=== PATIENT | female | born 1990 | race Two or more races ===

== ENCOUNTER 2019-06-25 06:10 | Day surgery (SDC) | payer OTHER ==
[~2019-06-25] VITALS: Ht 157.5 cm; Wt 61.4 kg
[~2019-06-25 06:10] MED LIST: SODIUM CHLORIDE 0.9% 1,000 ML ONE
[2019-06-25] MEDS ORDERED: SODIUM CHLORIDE 0.9% 1,000 ML IV ONE (06:30)
[2019-06-25] MEDS ORDERED: FERR-89 PO (07:58)
[2019-06-25] MEDS ORDERED: SERT100T12 PO (07:58)
[2019-06-25] MEDS ORDERED: OMEP20 PO (07:58)
[2019-06-25] MEDS ORDERED: FAMO20 PO (07:58)
[2019-06-25] MEDS ORDERED: CETI10TA59 PO (07:58)
[2019-06-25] MEDS ORDERED: MELA5TAB3 PO (07:58)
[2019-06-25] MEDS ORDERED: DIVA-76 PO (07:58)
[2019-06-25] MEDS ORDERED: MYCO250C7 PO (07:58)
[2019-06-25] MEDS ORDERED: DIPH25 PO (07:58)
[2019-06-25] MEDS ORDERED: BECL10.62 IH (07:58)
[2019-06-25] MEDS ORDERED: MONT10TA21 PO (07:58)
[2019-06-25] MEDS ORDERED: DDAV2 PO (07:58)
[2019-06-25] MEDS ORDERED: ALBU8.5H8 IH (07:58)
[2019-06-25] MEDS ORDERED: PRED1 PO (07:58)
[2019-06-25] MEDS ORDERED: RISP1 PO (07:58)
[2019-06-25] MEDS ORDERED: FentaNYL CITRATE-PF 100 MCG/2 ML VIAL ONE (08:16)
[2019-06-25] MEDS ORDERED: MIDAZOLAM HCL 2 MG/2 ML VIAL ONE (08:16)
[2019-06-25] MEDS ORDERED: MethylPREDNISolone SOD SUCC 125 MG/2 ML VIAL IVP ONE (08:45)
[2019-06-25] MEDS ORDERED: MethylPREDNISolone SOD SUCC 125 MG/2 ML VIAL ONE (09:14)
[2019-06-25] MEDS ORDERED: LIDOCAINE 4% 50 ML SOLUTION ONE (15:24)
[2019-06-25] MEDS ORDERED: BENZOCAINE 20% 50 MCG/SPRAY 57 GM ONE (15:24)
[2019-06-25] MEDS ORDERED: LIDOCAINE 2% 30 ML JELLY ONE (15:24)
[2019-06-25] MEDS ORDERED: OXYGEN THERAPY IH SCH (20:00)
== END 2019-06-25 10:30 | disposition home or self-care (01) ==
LOC: SURGERY 06:10
PROVIDERS: ATTEND Internal Medicine Critical Care Medicine
DX: R05 Cough (principal); J47.9 Bronchiectasis, uncomplicated; J34.89 Other specified disorders of nose and nasal sinuses; J98.8 Other specified respiratory disorders; B37.0 Candidal stomatitis; J38.4 Edema of larynx; J45.909 Unspecified asthma, uncomplicated; Z87.01 Personal history of pneumonia (recurrent); Z98.890 Other specified postprocedural states; Z79.899 Other long term (current) drug therapy; R19.09 Other intra-abdominal and pelvic swelling, mass and lump
CPT/HCPCS: 31623; 31624; 71045; 84703; 87015; 87070; 87101; 87205; 87206; 87220; 88108; 88184; 88185; 88312; J2250; J2930; J3010; J7030

== ENCOUNTER 2021-03-11 17:55 | Emergency (ER) | payer OTHER ==
[~2021-03-11] VITALS: Ht 154.9 cm; Wt 62.0 kg
[~2021-03-11 17:55] MED LIST changes: +ALBU8.5H8 IH; +BECL10.62 IH; +CETI-450 PO; +DDAV2 PO; +DIPH25 PO; +DIVA-111 PO; +FAMO20 PO; +FERR-89 PO; +MELA5TAB40 PO; +MONT-35 PO; +MYCO250C27 PO; +OMEP20 PO; +PRED1 PO; +RISP1TAB48 PO; +SERT-162 PO; -SODIUM CHLORIDE 0.9% 1,000 ML ONE
[2021-03-11] MEDS ORDERED: ZOLP10TA8 PO (19:40)
[2021-03-11] MEDS ORDERED: MYCO250C27 PO (19:40)
[2021-03-11] MEDS ORDERED: BECL10.62 IH (19:40)
[2021-03-11] MEDS ORDERED: TRAZ-252 PO (19:40)
[2021-03-11] MEDS ORDERED: MIRT-89 PO (19:40)
[2021-03-11 20:02] VITALS: BP 128/51
[2021-03-11] MEDS ORDERED: RISP3TAB35 PO (20:28)
[2021-03-11] MEDS ORDERED: DIVA-112 PO (20:28)
[2021-03-11] MEDS ORDERED: DIVALPROEX SODIUM 500 MG ER TABLET PO ONE (20:30)
[2021-03-11] MEDS ORDERED: LORazepam 1 MG TABLET PO ONE (20:30)
[2021-03-11] MEDS ORDERED: RisperiDONE 1 MG TABLET PO ONE (20:30)
== END 2021-03-11 22:15 | disposition home or self-care (01) ==
LOC: EMS 18:00
DX: R45.6 Violent behavior (principal); R46.89 Other symptoms and signs involving appearance and behavior; Z79.899 Other long term (current) drug therapy
CPT/HCPCS: 99284; Z7502; Z7610

== ENCOUNTER 2022-04-22 09:03 | Inpatient (IN) | payer OTHER ==
[~2022-04-22] VITALS: Ht 170.2 cm; Wt 68.0 kg
[~2022-04-22 09:03] MED LIST changes: -DDAV2 PO; +DESM0.2T4 PO; -DIPH25 PO; -DIVA-111 PO; +DIVA-112 PO; -FAMO20 PO; -FERR-89 PO; -MELA5TAB40 PO; +MIRT-89 PO; -RISP1TAB48 PO; +RISP3TAB35 PO; +TRAZ-252 PO; +ZOLP10TA8 PO
[2022-04-22 11:52] LABS: BASOPHILS % (AUTO) 0.1 % (0.0-2.0); EOSINOPHILS % (AUTO) 0.1 % (1.0-6.0); HEMATOCRIT 33.3 % (36-46); HEMOGLOBIN 10.8 g/dL (12.0-16.0); LYMPHOCYTES # (AUTO) 0.4 K/uL (1.0-4.8); LYMPHOCYTES % (AUTO) 6.9 % (22.0-44.0); MEAN CORPUSCULAR HEMOGLOBIN 30.4 pg (26.0-34.0); MEAN CORPUSCULAR HGB CONC 32.4 G/dL (31.0-37.0); MEAN CORPUSCULAR VOLUME 94 fL (80-100); MONOCYTES # (AUTO) 0.6 K/uL (0.1-1.0); MONOCYTES % (AUTO) 9.6 % (2.0-9.0); NEUTROPHILS # (AUTO) 5.1 K/uL (1.8-7.7); NEUTROPHILS % (AUTO) 83.3 % (40.0-70.0); RED BLOOD CELL COUNT(AUTO) 3.55 MIL/uL (4.00-5.20); RED CELL DISTRIBUTION WIDTH 14.6 % (11.5-14.5)
[2022-04-22 12:03] LABS: ANION GAP 2 mmol/L (8-16); CALCIUM, TOTAL 9.6 mg/dL (8.8-10.5); CARBON DIOXIDE 29 mmol/L (22-29); CHLORIDE 98 mmol/L (98-107); CREATININE 0.67 mg/dL (0.60-1.30); GLUCOSE,RANDOM 93 mg/dL (70-110); POTASSIUM 3.8 mmol/L (3.5-5.1); SODIUM SERUM 129 mmol/L (136-145); UREA NITROGEN, BLOOD 10 mg/dL (7-18)
[2022-04-22 12:04] LABS: GLOMERULAR FILTR. RATE CALC > 60 mL/min (>60)
[2022-04-22 12:10] LABS: PLATELET COUNT (AUTO) 68 K/uL (150-450)
[2022-04-22 12:16] LABS: ALBUMIN 2.5 g/dL (3.4-5.0); ALKALINE PHOSPHATASE 83 U/L (46-116); ASPARTATE AMINOTRANSFERASE 9 U/L (15-37); BILIRUBIN,TOTAL 0.5 mg/dL (0.1-1.0); HCG,QUANTITATIVE < 1 mIU/mL (0-6); THYROID STIMULATING HORMONE 4.37 uIU/mL (0.36-3.74); TOTAL PROTEIN, SERUM 5.8 g/dL (6.4-8.2); VALPROIC ACID 109 mcg/mL (50-100)
[2022-04-22 12:26] LABS: COVID AG,FIA SOURCE NASOPHARYNGEAL
[2022-04-22 12:29] LABS: ALANINE AMINOTRANSFERASE 5 U/L (12-78)
[2022-04-22] MEDS ORDERED: SODIUM CHLORIDE 0.9% 1,000 ML IV ONE ×2 (13:15→16:45)
[2022-04-22 14:21] LABS: LITHIUM 2.79 mmol/L (0.60-1.20)
[2022-04-22 16:02] VITALS: BP 126/62
[2022-04-22] MEDS ORDERED: GUAN1TAB2 PO (16:39)
[2022-04-22] MEDS ORDERED: PRED2.5T PO (16:39)
[2022-04-22] MEDS ORDERED: OXYB5TAB20 PO (16:39)
[2022-04-22] MEDS ORDERED: LITH300C3 PO (16:39)
[2022-04-22] MEDS ORDERED: SERT-439 PO (16:42)
[2022-04-22] MEDS ORDERED: MYCO180T3 PO (16:42)
[2022-04-22] MEDS ORDERED: ONDANSETRON HCL 4 MG/2 ML VIAL IVP PRN (16:45)
[2022-04-22] MEDS ORDERED: LURA80TA2 PO (16:45)
[2022-04-22] MEDS ORDERED: VIBE75TA PO (16:45)
[2022-04-22] MEDS ORDERED: ALBU8HFA IH (16:45)
[2022-04-22] MEDS ORDERED: ZOLPIDEM TARTRATE 5 MG TABLET PO PRN (16:45)
[2022-04-22] MEDS ORDERED: BISACODYL 10 MG RECTAL RECTAL SUPPOSITORY PR PRN (16:45)
[2022-04-22 20:09] VITALS: BP 110/58
[2022-04-22] MEDS ORDERED: MYCOPHENOLATE SODIUM 180 MG DR TABLET PO SCH (21:00)
[2022-04-22] MEDS: ACETAMINOPHEN 325 MG TABLET PO PRN (21:35)
[2022-04-22] MEDS: DOCUSATE SODIUM 100 MG CAPSULE PO SCH (21:35)
[2022-04-22] MEDS: DESMOPRESSIN ACETATE 0.2 MG TABLET PO SCH (21:35)
[2022-04-23] VITALS (7 sets, daily range): BP systolic 108–133; BP diastolic 45–87
[2022-04-23] MEDS: MORPHINE SULFATE 2 MG/ML SYRINGE IVP PRN ×2 (02:10→22:25)
[2022-04-23] MEDS: ACETAMINOPHEN 325 MG TABLET PO PRN (05:00)
[2022-04-23 05:44] LABS: APPEARANCE,URINE HAZY (CLEAR); BILIRUBIN,URINE NEGATIVE (NEGATIVE); GLUCOSE, URINE (UA) NEGATIVE (NEGATIVE); LEUKOCYTE ESTERASE ,URINE MODERATE (NEGATIVE); NITRATE,URINE POSITIVE (NEGATIVE); OCCULT BLOOD,URINE MODERATE (NEGATIVE); PROTEIN,URINE 30-70 mg/dL (NEGATIVE)
[2022-04-23 05:50] LABS: AMPHET/METH SCREEN,URINE NEGATIVE (NEGATIVE); BARBITURATE SCREEN, URINE NEGATIVE (NEGATIVE); BENZODIAZEPINES SCREEN,URINE NEGATIVE (NEGATIVE); CANNABINOID SCREEN,URINE NEGATIVE (NEGATIVE); COCAINE SCREEN,URINE NEGATIVE (NEGATIVE); METHADONE SCREEN, URINE NEGATIVE (NEGATIVE); OPIATE SCREEN,URINE NEGATIVE (NEGATIVE)
[2022-04-23 05:53] LABS: PHENCYCLIDINE SCREEN,URINE NEGATIVE (NEGATIVE)
[2022-04-23 06:06] LABS: BACTERIA,URINE Many /HPF (None Seen); SQUAMOUS EPITHELIAL CELL,UR Few /LPF (None Seen)
[2022-04-23 06:22] LABS: ANION GAP 10 mmol/L (8-16); CARBON DIOXIDE 24 mmol/L (22-29); CHLORIDE 100 mmol/L (98-107); CREATININE 0.72 mg/dL (0.60-1.30); GLUCOSE,RANDOM 113 mg/dL (70-110); POTASSIUM 4.8 mmol/L (3.5-5.1); SODIUM SERUM 134 mmol/L (136-145); UREA NITROGEN, BLOOD 7 mg/dL (7-18)
[2022-04-23 06:24] LABS: GLOMERULAR FILTR. RATE CALC > 60 mL/min (>60)
[2022-04-23 07:00] LABS: LITHIUM 1.86 mmol/L (0.60-1.20)
[2022-04-23 08:24] LABS: VALPROIC ACID 74 mcg/mL (50-100)
[2022-04-23] MEDS: HEPARIN SODIUM,PORCINE 5,000 UNITS/ML VIAL SQ SCH ×3 (08:56→16:50)
[2022-04-23] MEDS: PANTOPRAZOLE SODIUM 40 MG DR TABLET PO SCH (09:00)
[2022-04-23] MEDS: MONTELUKAST SODIUM 10 MG TABLET PO SCH (09:00)
[2022-04-23] MEDS: DOCUSATE SODIUM 100 MG CAPSULE PO SCH ×2 (09:00→21:00)
[2022-04-23 09:32] LABS: BASOPHILS % (AUTO) 0.1 % (0.0-2.0); EOSINOPHILS % (AUTO) 0.6 % (1.0-6.0); HEMATOCRIT 34.7 % (36-46); HEMOGLOBIN 11.3 g/dL (12.0-16.0); LYMPHOCYTES # (AUTO) 0.3 K/uL (1.0-4.8); LYMPHOCYTES % (AUTO) 5.9 % (22.0-44.0); MEAN CORPUSCULAR HEMOGLOBIN 30.7 pg (26.0-34.0); MEAN CORPUSCULAR HGB CONC 32.6 G/dL (31.0-37.0); MEAN CORPUSCULAR VOLUME 94 fL (80-100); MONOCYTES # (AUTO) 0.9 K/uL (0.1-1.0); MONOCYTES % (AUTO) 16.4 % (2.0-9.0); PLATELET COUNT (AUTO) 65 K/uL (150-450); RED BLOOD CELL COUNT(AUTO) 3.68 MIL/uL (4.00-5.20); RED CELL DISTRIBUTION WIDTH 14.9 % (11.5-14.5)
[2022-04-23] MEDS: ACETAMINOPHEN 650 MG RECTAL SUPPOSITORY PR PRN ×2 (15:06→23:34)
[2022-04-23] MEDS: CefTRIAXone 1 GM/DEXTROSE 50 ML IV SCH (16:49)
[2022-04-23] MEDS: DEXTROSE 5%-0.45% SODIUM CHL 1,000 ML IV SCH (16:50)
[2022-04-23] MEDS: DESMOPRESSIN ACETATE 0.2 MG TABLET PO SCH (21:00)
[2022-04-24 04:00] VITALS: BP 122/53
[2022-04-24] MEDS: DEXTROSE 5%-0.45% SODIUM CHL 1,000 ML IV SCH (05:29)
[2022-04-24 06:09] LABS: BASOPHILS % (AUTO) 0.2 % (0.0-2.0); EOSINOPHILS % (AUTO) 0 % (1.0-6.0); HEMATOCRIT 34.7 % (36-46); HEMOGLOBIN 11.2 g/dL (12.0-16.0); LYMPHOCYTES # (AUTO) 0.5 K/uL (1.0-4.8); LYMPHOCYTES % (AUTO) 6.8 % (22.0-44.0); MEAN CORPUSCULAR HEMOGLOBIN 30.6 pg (26.0-34.0); MEAN CORPUSCULAR HGB CONC 32.4 G/dL (31.0-37.0); MEAN CORPUSCULAR VOLUME 94 fL (80-100); MONOCYTES # (AUTO) 1.7 K/uL (0.1-1.0); MONOCYTES % (AUTO) 21.7 % (2.0-9.0); NEUTROPHILS # (AUTO) 5.6 K/uL (1.8-7.7); NEUTROPHILS % (AUTO) 71.3 % (40.0-70.0); PLATELET COUNT (AUTO) 82 K/uL (150-450); RED BLOOD CELL COUNT(AUTO) 3.67 MIL/uL (4.00-5.20); RED CELL DISTRIBUTION WIDTH 14.4 % (11.5-14.5)
[2022-04-24 07:01] LABS: ANION GAP 8 mmol/L (8-16); CALCIUM, TOTAL 9.8 mg/dL (8.8-10.5); CARBON DIOXIDE 26 mmol/L (22-29); CHLORIDE 104 mmol/L (98-107); GLUCOSE,RANDOM 128 mg/dL (70-110); POTASSIUM 4.1 mmol/L (3.5-5.1); SODIUM SERUM 138 mmol/L (136-145); UREA NITROGEN, BLOOD 7 mg/dL (7-18)
[2022-04-24 07:03] VITALS: BP 141/74
[2022-04-24 07:03] LABS: GLOMERULAR FILTR. RATE CALC > 60 mL/min (>60)
[2022-04-24] MEDS: HEPARIN SODIUM,PORCINE 5,000 UNITS/ML VIAL SQ SCH ×2 (08:00)
[2022-04-24] MEDS: DOCUSATE SODIUM 100 MG CAPSULE PO SCH ×2 (09:30→20:09)
[2022-04-24] MEDS: PANTOPRAZOLE SODIUM 40 MG DR TABLET PO SCH (09:30)
[2022-04-24] MEDS: MONTELUKAST SODIUM 10 MG TABLET PO SCH (09:30)
[2022-04-24 11:00] VITALS: BP 122/74
[2022-04-24 15:21] VITALS: BP 115/92
[2022-04-24] MEDS ORDERED: SODIUM CHLORIDE 0.9% 250 ML IV ONE (16:39)
[2022-04-24] MEDS: CefTRIAXone 1 GM/DEXTROSE 50 ML IV SCH (16:43)
[2022-04-24] MEDS: MORPHINE SULFATE 2 MG/ML SYRINGE IVP PRN (18:53)
[2022-04-24 20:00] VITALS: BP 133/74
[2022-04-24] MEDS: HYDROCODONE/ACETAMINOPHEN 5-325 MG TABLET PO PRN (20:09)
[2022-04-24] MEDS: DESMOPRESSIN ACETATE 0.2 MG TABLET PO SCH (20:09)
[2022-04-24] MEDS: ACETAMINOPHEN 650 MG RECTAL SUPPOSITORY PR PRN (20:10)
[2022-04-24] MEDS ORDERED: VANCOMYCIN HCL 1 GM in DEXTROSE 5%-WATER 250 ML IV ONE (21:00)
[2022-04-25] MEDS ORDERED: TraZODone HCL 50 MG TABLET PO ONE (00:15)
[2022-04-25 00:18] VITALS: BP 128/69
[2022-04-25] MEDS ORDERED: ADENOSINE 3 MG/ML 2 ML VIAL IVP ONE (01:00)
[2022-04-25] MEDS ORDERED: DILTIAZEM HCL 5 MG/ML 5 ML VIAL IVP ONE (01:25)
[2022-04-25] MEDS ORDERED: SODIUM CHLORIDE 0.9% 250 ML IV ONE ×2 (01:36→22:35)
[2022-04-25 05:20] VITALS: BP 99/57
[2022-04-25 07:19] VITALS: BP 130/60
[2022-04-25] MEDS ORDERED: AMIODARONE HCL 150 MG in DEXTROSE 5%-WATER 97 ML IV ONE (08:00)
[2022-04-25] MEDS: DEXTROSE 5%-0.45% SODIUM CHL 1,000 ML IV SCH ×2 (08:00→18:09)
[2022-04-25] MEDS ORDERED: AMIODARONE HCL 360 MG in DEXTROSE 5%-WATER 242.8 ML IV ONE (08:00)
[2022-04-25] MEDS ORDERED: LEVOTHYROXINE SODIUM 100 MCG VIAL IVP SCH (09:00)
[2022-04-25] MEDS: MONTELUKAST SODIUM 10 MG TABLET PO SCH (09:00)
[2022-04-25] MEDS: DOCUSATE SODIUM 100 MG CAPSULE PO SCH ×2 (09:00→20:45)
[2022-04-25] MEDS: PANTOPRAZOLE SODIUM 40 MG/VIAL IVP SCH (09:13)
[2022-04-25] MEDS ORDERED: DIGOXIN 250 MCG/ML 2 ML AMP IVP SCH (12:00)
[2022-04-25 12:42] VITALS: BP 111/63
[2022-04-25] MEDS: DIGOXIN 250 MCG/ML 2 ML AMP IVP SCH ×3 (12:44→23:12)
[2022-04-25] MEDS ORDERED: AMIODARONE HCL 540 MG in DEXTROSE 5%-WATER 239.2 ML IV ONE (14:00)
[2022-04-25 15:29] VITALS: BP 134/61
[2022-04-25 16:32] LABS: BASOPHILS % (AUTO) 0.2 % (0.0-2.0); EOSINOPHILS % (AUTO) 0.3 % (1.0-6.0); HEMATOCRIT 36.3 % (36-46); HEMOGLOBIN 11.8 g/dL (12.0-16.0); LYMPHOCYTES # (AUTO) 1.4 K/uL (1.0-4.8); LYMPHOCYTES % (AUTO) 10.7 % (22.0-44.0); MEAN CORPUSCULAR HGB CONC 32.4 G/dL (31.0-37.0); MEAN CORPUSCULAR VOLUME 93 fL (80-100); MONOCYTES # (AUTO) 1.3 K/uL (0.1-1.0); MONOCYTES % (AUTO) 10.2 % (2.0-9.0); NEUTROPHILS # (AUTO) 10.3 K/uL (1.8-7.7); NEUTROPHILS % (AUTO) 78.6 % (40.0-70.0); PLATELET COUNT (AUTO) 82 K/uL (150-450); RED BLOOD CELL COUNT(AUTO) 3.91 MIL/uL (4.00-5.20); RED CELL DISTRIBUTION WIDTH 14.6 % (11.5-14.5)
[2022-04-25 16:42] LABS: ANION GAP 5 mmol/L (8-16); CALCIUM, TOTAL 9.1 mg/dL (8.8-10.5); CARBON DIOXIDE 25 mmol/L (22-29); CHLORIDE 95 mmol/L (98-107); CREATININE 0.46 mg/dL (0.60-1.30); GLUCOSE,RANDOM 104 mg/dL (70-110); POTASSIUM 3.2 mmol/L (3.5-5.1); SODIUM SERUM 125 mmol/L (136-145); UREA NITROGEN, BLOOD 8 mg/dL (7-18)
[2022-04-25 16:43] LABS: GLOMERULAR FILTR. RATE CALC > 60 mL/min (>60)
[2022-04-25] MEDS: CefTRIAXone 1 GM/DEXTROSE 50 ML IV SCH (16:59)
[2022-04-25 20:04] VITALS: BP 125/87
[2022-04-25] MEDS: DESMOPRESSIN ACETATE 0.2 MG TABLET PO SCH (20:46)
[2022-04-25 21:14] LABS: ANION GAP 8 mmol/L (8-16); CALCIUM, TOTAL 9.2 mg/dL (8.8-10.5); CARBON DIOXIDE 25 mmol/L (22-29); CHLORIDE 99 mmol/L (98-107); CREATININE 0.44 mg/dL (0.60-1.30); GLUCOSE,RANDOM 100 mg/dL (70-110); POTASSIUM 3.4 mmol/L (3.5-5.1); SODIUM SERUM 132 mmol/L (136-145); UREA NITROGEN, BLOOD 7 mg/dL (7-18)
[2022-04-25 21:16] LABS: GLOMERULAR FILTR. RATE CALC > 60 mL/min (>60)
[2022-04-25] MEDS ORDERED: POTASSIUM CHLORIDE 20 MEQ ER TABLET PO ONE (21:45)
[2022-04-25] MEDS ORDERED: VANCOMYCIN HCL 1.5 GM in DEXTROSE 5%-WATER 250 ML IV ONE (22:00)
[2022-04-25] MEDS: PIPERACILLIN/TAZO 3.375 GM/D5W 50 ML IV SCH (22:47)
[2022-04-26 00:06] VITALS: BP 112/70
[2022-04-26] MEDS: PIPERACILLIN/TAZO 3.375 GM/D5W 50 ML IV SCH ×4 (03:42→21:42)
[2022-04-26 04:14] VITALS: BP 114/93
[2022-04-26] MEDS: LEVOTHYROXINE SODIUM 25 MCG TABLET PO SCH (05:45)
[2022-04-26] MEDS: DIGOXIN 250 MCG/ML 2 ML AMP IVP SCH (05:59)
[2022-04-26] MEDS: DEXTROSE 5%-0.45% SODIUM CHL 1,000 ML IV SCH (06:31)
[2022-04-26 07:22] VITALS: BP 121/74
[2022-04-26] MEDS: MONTELUKAST SODIUM 10 MG TABLET PO SCH (08:33)
[2022-04-26] MEDS: DOCUSATE SODIUM 100 MG CAPSULE PO SCH ×2 (08:33→20:36)
[2022-04-26] MEDS: PANTOPRAZOLE SODIUM 40 MG/VIAL IVP SCH (08:33)
[2022-04-26] MEDS: AMIODARONE HCL 750 MG in DEXTROSE 5%-WATER 485 ML IV SCH (08:56)
[2022-04-26] MEDS: VANCOMYCIN HCL 1 GM in DEXTROSE 5%-WATER 250 ML IV SCH ×2 (08:57→15:23)
[2022-04-26 11:11] VITALS: BP 112/67
[2022-04-26 12:34] LABS: PHOSPHORUS 3.7 mg/dL (2.5-4.9)
[2022-04-26 16:20] VITALS: BP 119/58
[2022-04-26 18:37] LABS: ANION GAP 13 mmol/L (8-16); CALCIUM, TOTAL 9.5 mg/dL (8.8-10.5); CARBON DIOXIDE 22 mmol/L (22-29); CHLORIDE 98 mmol/L (98-107); CREATININE 0.83 mg/dL (0.60-1.30); GLOMERULAR FILTR. RATE CALC > 60 mL/min (>60); GLUCOSE,RANDOM 114 mg/dL (70-110); POTASSIUM 4.4 mmol/L (3.5-5.1); SODIUM SERUM 133 mmol/L (136-145); UREA NITROGEN, BLOOD 10 mg/dL (7-18)
[2022-04-26 19:29] VITALS: BP 127/64
[2022-04-26] MEDS: DESMOPRESSIN ACETATE 0.2 MG TABLET PO SCH (20:37)
[2022-04-26] MEDS ORDERED: MAGNESIUM SULFATE 2 GM/WATER 50 ML IV PRN (22:00)
[2022-04-26] MEDS ORDERED: MAGNESIUM SULFATE 4 GM/WATER 100 ML IV PRN (22:00)
[2022-04-26] MEDS ORDERED: MAGNESIUM OXIDE 400 MG TABLET PO PRN (22:00)
[2022-04-26 22:29] LABS: ALBUMIN 2.3 g/dL (3.4-5.0)
[2022-04-27 00:04] VITALS: BP 130/68
[2022-04-27] MEDS: DEXTROSE 5%-0.45% SODIUM CHL 1,000 ML IV SCH ×2 (01:14→15:36)
[2022-04-27 04:11] VITALS: BP 100/59
[2022-04-27] MEDS: PIPERACILLIN/TAZO 3.375 GM/D5W 50 ML IV SCH ×4 (04:15→21:07)
[2022-04-27] MEDS: LEVOTHYROXINE SODIUM 25 MCG TABLET PO SCH (06:23)
[2022-04-27 07:44] VITALS: BP 124/73
[2022-04-27] MEDS: DOCUSATE SODIUM 100 MG CAPSULE PO SCH ×2 (09:15→20:31)
[2022-04-27] MEDS: PANTOPRAZOLE SODIUM 40 MG/VIAL IVP SCH (09:16)
[2022-04-27] MEDS: MONTELUKAST SODIUM 10 MG TABLET PO SCH (09:16)
[2022-04-27] MEDS: AMIODARONE HCL 750 MG in DEXTROSE 5%-WATER 485 ML IV SCH (09:20)
[2022-04-27] MEDS: METOPROLOL SUCCINATE 25 MG ER TABLET PO SCH (10:11)
[2022-04-27] MEDS: HYDROCODONE/ACETAMINOPHEN 5-325 MG TABLET PO PRN (10:11)
[2022-04-27 11:22] VITALS: BP 132/75
[2022-04-27 11:44] LABS: EOSINOPHILS % (AUTO) 0.6 % (1.0-6.0); HEMATOCRIT 29.2 % (36-46); HEMOGLOBIN 9.5 g/dL (12.0-16.0); LYMPHOCYTES % (AUTO) 9.1 % (22.0-44.0); MEAN CORPUSCULAR HEMOGLOBIN 30.3 pg (26.0-34.0); MEAN CORPUSCULAR HGB CONC 32.6 G/dL (31.0-37.0); MEAN CORPUSCULAR VOLUME 93 fL (80-100); MONOCYTES % (AUTO) 8.8 % (2.0-9.0); NEUTROPHILS % (AUTO) 81.4 % (40.0-70.0); PLATELET COUNT (AUTO) 147 K/uL (150-450); RED BLOOD CELL COUNT(AUTO) 3.15 MIL/uL (4.00-5.20)
[2022-04-27 11:45] LABS: BASOPHILS % (AUTO) 0.1 % (0.0-2.0); NEUTROPHILS # (AUTO) 9.3 K/uL (1.8-7.7)
[2022-04-27 12:01] LABS: ANION GAP 4 mmol/L (8-16); C-REACTIVE PROTEIN QUANT 9.41 mg/dL (0.00-0.30); CALCIUM, TOTAL 8.9 mg/dL (8.8-10.5); CARBON DIOXIDE 27 mmol/L (22-29); CHLORIDE 100 mmol/L (98-107); CREATININE 0.91 mg/dL (0.60-1.30); GLUCOSE,RANDOM 109 mg/dL (70-110); POTASSIUM 3.7 mmol/L (3.5-5.1); SODIUM SERUM 131 mmol/L (136-145); UREA NITROGEN, BLOOD 8 mg/dL (7-18)
[2022-04-27 12:03] LABS: GLOMERULAR FILTR. RATE CALC > 60 mL/min (>60)
[2022-04-27 12:26] LABS: ALANINE AMINOTRANSFERASE 4 U/L (12-78); ALKALINE PHOSPHATASE 78 U/L (46-116); ASPARTATE AMINOTRANSFERASE 20 U/L (15-37); BILIRUBIN,TOTAL 0.6 mg/dL (0.1-1.0); TOTAL PROTEIN, SERUM 5.4 g/dL (6.4-8.2)
[2022-04-27 15:29] VITALS: BP 128/72
[2022-04-27 19:33] VITALS: BP 120/76
[2022-04-27] MEDS: DESMOPRESSIN ACETATE 0.2 MG TABLET PO SCH (20:31)
[2022-04-28] VITALS (8 sets, daily range): BP systolic 86–122; BP diastolic 49–74
[2022-04-28] MEDS: DEXTROSE 5%-0.45% SODIUM CHL 1,000 ML IV SCH (03:50)
[2022-04-28] MEDS: PIPERACILLIN/TAZO 3.375 GM/D5W 50 ML IV SCH ×4 (03:50→20:58)
[2022-04-28] MEDS: LEVOTHYROXINE SODIUM 25 MCG TABLET PO SCH (06:37)
[2022-04-28] MEDS: PANTOPRAZOLE SODIUM 40 MG/VIAL IVP SCH (09:35)
[2022-04-28] MEDS: MONTELUKAST SODIUM 10 MG TABLET PO SCH (09:36)
[2022-04-28] MEDS: DOCUSATE SODIUM 100 MG CAPSULE PO SCH ×2 (09:36→20:43)
[2022-04-28] MEDS: METOPROLOL SUCCINATE 25 MG ER TABLET PO SCH ×2 (11:48→11:51)
[2022-04-28 15:25] LABS: BASOPHILS % (AUTO) 0.2 % (0.0-2.0); EOSINOPHILS % (AUTO) 0.7 % (1.0-6.0); HEMATOCRIT 28.5 % (36-46); HEMOGLOBIN 9.5 g/dL (12.0-16.0); LYMPHOCYTES # (AUTO) 1.7 K/uL (1.0-4.8); LYMPHOCYTES % (AUTO) 13.1 % (22.0-44.0); MEAN CORPUSCULAR HEMOGLOBIN 30.4 pg (26.0-34.0); MEAN CORPUSCULAR HGB CONC 33.2 G/dL (31.0-37.0); MEAN CORPUSCULAR VOLUME 92 fL (80-100); MONOCYTES # (AUTO) 1.1 K/uL (0.1-1.0); NEUTROPHILS # (AUTO) 10.3 K/uL (1.8-7.7); PLATELET COUNT (AUTO) 223 K/uL (150-450); RED BLOOD CELL COUNT(AUTO) 3.11 MIL/uL (4.00-5.20); RED CELL DISTRIBUTION WIDTH 14.4 % (11.5-14.5)
[2022-04-28 15:34] LABS: ANION GAP 7 mmol/L (8-16); CALCIUM, TOTAL 9.1 mg/dL (8.8-10.5); CARBON DIOXIDE 25 mmol/L (22-29); CHLORIDE 103 mmol/L (98-107); CREATININE 0.83 mg/dL (0.60-1.30); GLOMERULAR FILTR. RATE CALC > 60 mL/min (>60); GLUCOSE,RANDOM 102 mg/dL (70-110); SODIUM SERUM 135 mmol/L (136-145); UREA NITROGEN, BLOOD 7 mg/dL (7-18)
[2022-04-28 15:39] LABS: ALANINE AMINOTRANSFERASE 11 U/L (12-78); ALBUMIN 2.1 g/dL (3.4-5.0); ALKALINE PHOSPHATASE 77 U/L (46-116); ASPARTATE AMINOTRANSFERASE 19 U/L (15-37); BILIRUBIN,TOTAL 0.4 mg/dL (0.1-1.0); TOTAL PROTEIN, SERUM 5.6 g/dL (6.4-8.2)
[2022-04-28] MEDS: DESMOPRESSIN ACETATE 0.2 MG TABLET PO SCH (20:43)
[2022-04-29] MEDS: PIPERACILLIN/TAZO 3.375 GM/D5W 50 ML IV SCH ×4 (03:11→22:00)
[2022-04-29] MEDS: DEXTROSE 5%-0.45% SODIUM CHL 1,000 ML IV SCH ×2 (03:12→17:20)
[2022-04-29 04:12] VITALS: BP 133/51
[2022-04-29] MEDS: LEVOTHYROXINE SODIUM 25 MCG TABLET PO SCH (05:50)
[2022-04-29 07:12] VITALS: BP 135/69
[2022-04-29] MEDS: PANTOPRAZOLE SODIUM 40 MG/VIAL IVP SCH (09:00)
[2022-04-29] MEDS: DOCUSATE SODIUM 100 MG CAPSULE PO SCH ×2 (09:03→20:38)
[2022-04-29] MEDS: MONTELUKAST SODIUM 10 MG TABLET PO SCH (09:03)
[2022-04-29 11:05] VITALS: BP 132/72
[2022-04-29 15:16] VITALS: BP 105/70
[2022-04-29 19:50] VITALS: BP 122/55
[2022-04-29] MEDS: DESMOPRESSIN ACETATE 0.2 MG TABLET PO SCH (20:38)
[2022-04-29] MEDS: DIVALPROEX SODIUM 500 MG DR TABLET PO SCH (20:38)
[2022-04-29] MEDS: QUEtiapine FUMARATE 100 MG TABLET PO SCH (20:38)
[2022-04-29] MEDS ORDERED: LEVOFLOXACIN 750 MG TABLET PO ONE (23:55)
[2022-04-30] MEDS: MetroNIDAZOLE 500 MG TABLET PO SCH ×3 (00:36→16:27)
[2022-04-30 00:50] VITALS: BP 146/85
[2022-04-30] MEDS: PIPERACILLIN/TAZO 3.375 GM/D5W 50 ML IV SCH ×2 (04:00→10:56)
[2022-04-30 04:24] VITALS: BP 138/72
[2022-04-30] MEDS: LEVOTHYROXINE SODIUM 25 MCG TABLET PO SCH (06:06)
[2022-04-30] MEDS: DEXTROSE 5%-0.45% SODIUM CHL 1,000 ML IV SCH ×2 (06:08→20:44)
[2022-04-30 07:08] VITALS: BP 113/85
[2022-04-30] MEDS: DIVALPROEX SODIUM 500 MG DR TABLET PO SCH ×2 (07:52→20:43)
[2022-04-30] MEDS: QUEtiapine FUMARATE 100 MG TABLET PO SCH ×3 (07:52→20:42)
[2022-04-30] MEDS: MONTELUKAST SODIUM 10 MG TABLET PO SCH (07:52)
[2022-04-30] MEDS: DOCUSATE SODIUM 100 MG CAPSULE PO SCH ×2 (07:52→20:42)
[2022-04-30] MEDS: PANTOPRAZOLE SODIUM 40 MG/VIAL IVP SCH (10:55)
[2022-04-30 10:56] VITALS: BP 97/52
[2022-04-30 11:54] LABS: BASOPHILS % (AUTO) 0.4 % (0.0-2.0); EOSINOPHILS % (AUTO) 1.3 % (1.0-6.0); HEMATOCRIT 29.8 % (36-46); HEMOGLOBIN 9.9 g/dL (12.0-16.0); LYMPHOCYTES # (AUTO) 1.6 K/uL (1.0-4.8); LYMPHOCYTES % (AUTO) 15.6 % (22.0-44.0); MEAN CORPUSCULAR HEMOGLOBIN 30.1 pg (26.0-34.0); MEAN CORPUSCULAR HGB CONC 33.3 G/dL (31.0-37.0); MEAN CORPUSCULAR VOLUME 90 fL (80-100); MONOCYTES # (AUTO) 0.8 K/uL (0.1-1.0); MONOCYTES % (AUTO) 8.1 % (2.0-9.0); NEUTROPHILS # (AUTO) 7.8 K/uL (1.8-7.7); NEUTROPHILS % (AUTO) 74.6 % (40.0-70.0); PLATELET COUNT (AUTO) 328 K/uL (150-450); RED CELL DISTRIBUTION WIDTH 14.5 % (11.5-14.5)
[2022-04-30 12:02] LABS: ANION GAP 7 mmol/L (8-16); C-REACTIVE PROTEIN QUANT 6.34 mg/dL (0.00-0.30); CALCIUM, TOTAL 9.7 mg/dL (8.8-10.5); CARBON DIOXIDE 28 mmol/L (22-29); CHLORIDE 101 mmol/L (98-107); CREATININE 0.87 mg/dL (0.60-1.30); GLUCOSE,RANDOM 95 mg/dL (70-110); POTASSIUM 4.4 mmol/L (3.5-5.1); SODIUM SERUM 136 mmol/L (136-145); UREA NITROGEN, BLOOD 13 mg/dL (7-18)
[2022-04-30 12:03] LABS: GLOMERULAR FILTR. RATE CALC > 60 mL/min (>60)
[2022-04-30 15:03] VITALS: BP 140/83
[2022-04-30] MEDS: CefTRIAXone 1 GM/DEXTROSE 50 ML IV SCH (16:27)
[2022-04-30 20:00] VITALS: BP 122/79
[2022-04-30] MEDS: DESMOPRESSIN ACETATE 0.2 MG TABLET PO SCH (20:43)
[2022-05-01] VITALS (7 sets, daily range): BP systolic 119–147; BP diastolic 62–94
[2022-05-01] MEDS: MetroNIDAZOLE 500 MG TABLET PO SCH ×3 (00:27→16:11)
[2022-05-01] MEDS: LEVOTHYROXINE SODIUM 25 MCG TABLET PO SCH (05:50)
[2022-05-01] MEDS: QUEtiapine FUMARATE 100 MG TABLET PO SCH ×3 (08:54→20:38)
[2022-05-01] MEDS: DIVALPROEX SODIUM 500 MG DR TABLET PO SCH ×2 (08:54→20:38)
[2022-05-01] MEDS: DOCUSATE SODIUM 100 MG CAPSULE PO SCH ×2 (08:54→20:38)
[2022-05-01] MEDS: MONTELUKAST SODIUM 10 MG TABLET PO SCH (08:54)
[2022-05-01] MEDS: DEXTROSE 5%-0.45% SODIUM CHL 1,000 ML IV SCH ×2 (11:53→22:40)
[2022-05-01] MEDS: PANTOPRAZOLE SODIUM 40 MG/VIAL IVP SCH (11:54)
[2022-05-01] MEDS: CefTRIAXone 1 GM/DEXTROSE 50 ML IV SCH (16:11)
[2022-05-01] MEDS: DESMOPRESSIN ACETATE 0.2 MG TABLET PO SCH (20:38)
[2022-05-02] MEDS: MetroNIDAZOLE 500 MG TABLET PO SCH ×3 (00:24→15:01)
[2022-05-02 04:55] VITALS: BP 120/60
[2022-05-02] MEDS: LEVOTHYROXINE SODIUM 25 MCG TABLET PO SCH (06:03)
[2022-05-02 08:01] VITALS: BP 110/55
[2022-05-02] MEDS: QUEtiapine FUMARATE 100 MG TABLET PO SCH ×3 (08:20→20:30)
[2022-05-02] MEDS: DIVALPROEX SODIUM 500 MG DR TABLET PO SCH ×2 (08:20→20:29)
[2022-05-02] MEDS: MONTELUKAST SODIUM 10 MG TABLET PO SCH (08:20)
[2022-05-02] MEDS: DOCUSATE SODIUM 100 MG CAPSULE PO SCH ×2 (08:20→20:29)
[2022-05-02] MEDS: PANTOPRAZOLE SODIUM 40 MG/VIAL IVP SCH (09:00)
[2022-05-02 11:38] VITALS: BP 133/63
[2022-05-02] MEDS: DEXTROSE 5%-0.45% SODIUM CHL 1,000 ML IV SCH (12:00)
[2022-05-02] MEDS ORDERED: LEVOFLOXACIN 750 MG TABLET PO ONE (13:00)
[2022-05-02 15:39] VITALS: BP 125/69
[2022-05-02] MEDS: DESMOPRESSIN ACETATE 0.2 MG TABLET PO SCH (20:29)
[2022-05-02 20:30] VITALS: BP 141/71
[2022-05-03 00:36] VITALS: BP 119/58
[2022-05-03] MEDS: MetroNIDAZOLE 500 MG TABLET PO SCH ×3 (01:07→16:32)
[2022-05-03] MEDS: DEXTROSE 5%-0.45% SODIUM CHL 1,000 ML IV SCH ×2 (01:09→14:40)
[2022-05-03] MEDS ORDERED: MELATONIN 5 MG TABLET PO ONE (01:30)
[2022-05-03 05:10] VITALS: BP 134/81
[2022-05-03] MEDS: LEVOTHYROXINE SODIUM 25 MCG TABLET PO SCH (06:49)
[2022-05-03 07:50] VITALS: BP 96/55
[2022-05-03] MEDS: QUEtiapine FUMARATE 100 MG TABLET PO SCH ×3 (08:25→22:06)
[2022-05-03] MEDS: DIVALPROEX SODIUM 500 MG DR TABLET PO SCH ×2 (08:27→22:05)
[2022-05-03] MEDS: MONTELUKAST SODIUM 10 MG TABLET PO SCH (08:31)
[2022-05-03] MEDS: DOCUSATE SODIUM 100 MG CAPSULE PO SCH ×2 (08:32→22:05)
[2022-05-03] MEDS: PANTOPRAZOLE SODIUM 40 MG/VIAL IVP SCH (09:00)
[2022-05-03] MEDS ORDERED: LEVOFLOXACIN 750 MG TABLET PO ONE (09:00)
[2022-05-03 11:31] LABS: BASOPHILS % (AUTO) 0.3 % (0.0-2.0); EOSINOPHILS % (AUTO) 1.2 % (1.0-6.0); HEMATOCRIT 33.6 % (36-46); HEMOGLOBIN 10.8 g/dL (12.0-16.0); LYMPHOCYTES # (AUTO) 1.9 K/uL (1.0-4.8); LYMPHOCYTES % (AUTO) 24.9 % (22.0-44.0); MEAN CORPUSCULAR HEMOGLOBIN 30.1 pg (26.0-34.0); MEAN CORPUSCULAR HGB CONC 32.2 G/dL (31.0-37.0); MEAN CORPUSCULAR VOLUME 93 fL (80-100); MONOCYTES # (AUTO) 0.5 K/uL (0.1-1.0); MONOCYTES % (AUTO) 6.2 % (2.0-9.0); NEUTROPHILS # (AUTO) 5.1 K/uL (1.8-7.7); NEUTROPHILS % (AUTO) 67.4 % (40.0-70.0); PLATELET COUNT (AUTO) 315 K/uL (150-450); RED BLOOD CELL COUNT(AUTO) 3.61 MIL/uL (4.00-5.20); RED CELL DISTRIBUTION WIDTH 14.9 % (11.5-14.5)
[2022-05-03 11:45] VITALS: BP 105/65
[2022-05-03 11:53] LABS: ALBUMIN 2.5 g/dL (3.4-5.0); ALKALINE PHOSPHATASE 81 U/L (46-116); ANION GAP 7 mmol/L (8-16); ASPARTATE AMINOTRANSFERASE 10 U/L (15-37); BILIRUBIN,TOTAL 0.4 mg/dL (0.1-1.0); C-REACTIVE PROTEIN QUANT 2.28 mg/dL (0.00-0.30); CALCIUM, TOTAL 9.8 mg/dL (8.8-10.5); CARBON DIOXIDE 27 mmol/L (22-29); CHLORIDE 102 mmol/L (98-107); CREATININE 0.68 mg/dL (0.60-1.30); GLOMERULAR FILTR. RATE CALC > 60 mL/min (>60); GLUCOSE,RANDOM 92 mg/dL (70-110); POTASSIUM 4.8 mmol/L (3.5-5.1); SODIUM SERUM 136 mmol/L (136-145); TOTAL PROTEIN, SERUM 6.4 g/dL (6.4-8.2); UREA NITROGEN, BLOOD 15 mg/dL (7-18)
[2022-05-03 12:16] LABS: ALANINE AMINOTRANSFERASE 6 U/L (12-78)
[2022-05-03 16:10] VITALS: BP 98/58
[2022-05-03 20:14] VITALS: BP 116/68
[2022-05-03] MEDS: DESMOPRESSIN ACETATE 0.2 MG TABLET PO SCH (22:05)
[2022-05-04] MEDS: MetroNIDAZOLE 500 MG TABLET PO SCH ×2 (01:01→08:09)
[2022-05-04] MEDS: LEVOTHYROXINE SODIUM 25 MCG TABLET PO SCH (06:29)
[2022-05-04 07:18] VITALS: BP 148/71
[2022-05-04] MEDS: DEXTROSE 5%-0.45% SODIUM CHL 1,000 ML IV SCH ×2 (08:05→16:26)
[2022-05-04] MEDS: PANTOPRAZOLE SODIUM 40 MG/VIAL IVP SCH (08:05)
[2022-05-04] MEDS: DOCUSATE SODIUM 100 MG CAPSULE PO SCH ×2 (08:08→21:30)
[2022-05-04] MEDS: QUEtiapine FUMARATE 100 MG TABLET PO SCH ×3 (08:09→21:30)
[2022-05-04] MEDS: DIVALPROEX SODIUM 500 MG DR TABLET PO SCH ×2 (08:09→21:30)
[2022-05-04] MEDS: MONTELUKAST SODIUM 10 MG TABLET PO SCH (08:09)
[2022-05-04 15:28] VITALS: BP 98/72
[2022-05-04 19:37] VITALS: BP 124/82
[2022-05-04] MEDS: DESMOPRESSIN ACETATE 0.2 MG TABLET PO SCH (21:30)
[2022-05-04 23:58] VITALS: BP 122/78
[2022-05-05 04:21] VITALS: BP 119/75
[2022-05-05] MEDS: DEXTROSE 5%-0.45% SODIUM CHL 1,000 ML IV SCH ×2 (06:40→19:44)
[2022-05-05 07:14] VITALS: BP 116/70
[2022-05-05] MEDS: LEVOTHYROXINE SODIUM 25 MCG TABLET PO SCH (07:28)
[2022-05-05] MEDS: MONTELUKAST SODIUM 10 MG TABLET PO SCH (08:58)
[2022-05-05] MEDS: DOCUSATE SODIUM 100 MG CAPSULE PO SCH ×2 (08:58→20:13)
[2022-05-05] MEDS: DIVALPROEX SODIUM 500 MG DR TABLET PO SCH ×2 (08:59→20:13)
[2022-05-05] MEDS: QUEtiapine FUMARATE 100 MG TABLET PO SCH ×3 (08:59→20:13)
[2022-05-05] MEDS: PANTOPRAZOLE SODIUM 40 MG/VIAL IVP SCH (09:00)
[2022-05-05 10:55] LABS: BASOPHILS % (AUTO) 0.5 % (0.0-2.0); HEMATOCRIT 33.8 % (36-46); HEMOGLOBIN 10.9 g/dL (12.0-16.0); LYMPHOCYTES # (AUTO) 1.7 K/uL (1.0-4.8); MEAN CORPUSCULAR HGB CONC 32.4 G/dL (31.0-37.0); MEAN CORPUSCULAR VOLUME 93 fL (80-100); MONOCYTES # (AUTO) 0.2 K/uL (0.1-1.0); MONOCYTES % (AUTO) 4.7 % (2.0-9.0); NEUTROPHILS # (AUTO) 3.3 K/uL (1.8-7.7); NEUTROPHILS % (AUTO) 61.8 % (40.0-70.0); PLATELET COUNT (AUTO) 221 K/uL (150-450); RED BLOOD CELL COUNT(AUTO) 3.65 MIL/uL (4.00-5.20); RED CELL DISTRIBUTION WIDTH 15.2 % (11.5-14.5)
[2022-05-05 10:58] VITALS: BP 110/50
[2022-05-05 11:25] LABS: ALANINE AMINOTRANSFERASE 5 U/L (12-78); ALBUMIN 2.6 g/dL (3.4-5.0); ALKALINE PHOSPHATASE 77 U/L (46-116); ANION GAP 9 mmol/L (8-16); ASPARTATE AMINOTRANSFERASE 14 U/L (15-37); BILIRUBIN,TOTAL 0.3 mg/dL (0.1-1.0); CALCIUM, TOTAL 9.4 mg/dL (8.8-10.5); CARBON DIOXIDE 27 mmol/L (22-29); CHLORIDE 102 mmol/L (98-107); CREATININE 0.58 mg/dL (0.60-1.30); GLUCOSE,RANDOM 98 mg/dL (70-110); POTASSIUM 4.3 mmol/L (3.5-5.1); SODIUM SERUM 138 mmol/L (136-145); TOTAL PROTEIN, SERUM 6.1 g/dL (6.4-8.2); UREA NITROGEN, BLOOD 11 mg/dL (7-18)
[2022-05-05 11:26] LABS: GLOMERULAR FILTR. RATE CALC > 60 mL/min (>60)
[2022-05-05 15:43] VITALS: BP 118/71
[2022-05-05 20:00] VITALS: BP 107/75
[2022-05-05] MEDS: DESMOPRESSIN ACETATE 0.2 MG TABLET PO SCH (20:13)
[2022-05-06 05:12] VITALS: BP 127/83
[2022-05-06] MEDS: LEVOTHYROXINE SODIUM 25 MCG TABLET PO SCH (06:21)
[2022-05-06 08:10] VITALS: BP 122/91
[2022-05-06] MEDS: DIVALPROEX SODIUM 500 MG DR TABLET PO SCH ×2 (08:38→20:22)
[2022-05-06] MEDS: DOCUSATE SODIUM 100 MG CAPSULE PO SCH ×2 (08:38→20:22)
[2022-05-06] MEDS: PANTOPRAZOLE SODIUM 40 MG/VIAL IVP SCH (08:38)
[2022-05-06] MEDS: QUEtiapine FUMARATE 100 MG TABLET PO SCH ×3 (08:39→20:22)
[2022-05-06] MEDS: MONTELUKAST SODIUM 10 MG TABLET PO SCH (08:39)
[2022-05-06 20:00] VITALS: BP 106/75
[2022-05-06] MEDS: DESMOPRESSIN ACETATE 0.2 MG TABLET PO SCH (20:23)
[2022-05-07] MEDS: ACETAMINOPHEN 325 MG TABLET PO PRN (06:23)
[2022-05-07] MEDS: LEVOTHYROXINE SODIUM 25 MCG TABLET PO SCH (06:23)
[2022-05-07] MEDS: DOCUSATE SODIUM 100 MG CAPSULE PO SCH ×2 (08:26→19:54)
[2022-05-07] MEDS: MONTELUKAST SODIUM 10 MG TABLET PO SCH (08:26)
[2022-05-07] MEDS: QUEtiapine FUMARATE 100 MG TABLET PO SCH ×3 (08:26→19:54)
[2022-05-07] MEDS: MAGNESIUM HYDROXIDE SUSPENSION 30 ML UDCUP PO PRN (08:26)
[2022-05-07] MEDS: DIVALPROEX SODIUM 500 MG DR TABLET PO SCH ×2 (08:26→19:54)
[2022-05-07 08:29] VITALS: BP_SYST 101; BP_DIAS 20; BP_DIAS 50
[2022-05-07 19:29] VITALS: BP 136/70
[2022-05-07] MEDS: DESMOPRESSIN ACETATE 0.2 MG TABLET PO SCH (19:55)
[2022-05-08 05:15] VITALS: BP 103/68
[2022-05-08] MEDS: LEVOTHYROXINE SODIUM 25 MCG TABLET PO SCH (05:50)
[2022-05-08 06:45] LABS: COVID AG,FIA SOURCE NASOPHARYNGEAL
[2022-05-08] MEDS: MONTELUKAST SODIUM 10 MG TABLET PO SCH (08:55)
[2022-05-08] MEDS: QUEtiapine FUMARATE 100 MG TABLET PO SCH ×3 (08:55→22:12)
[2022-05-08] MEDS: DIVALPROEX SODIUM 500 MG DR TABLET PO SCH ×2 (08:55→22:11)
[2022-05-08] MEDS: DOCUSATE SODIUM 100 MG CAPSULE PO SCH ×2 (08:55→21:00)
[2022-05-08] MEDS: DESMOPRESSIN ACETATE 0.2 MG TABLET PO SCH (22:11)
[2022-05-09] MEDS: LEVOTHYROXINE SODIUM 25 MCG TABLET PO SCH (05:52)
[2022-05-09 07:51] LABS: BASOPHILS % (AUTO) 0.5 % (0.0-2.0); EOSINOPHILS % (AUTO) 1.3 % (1.0-6.0); HEMATOCRIT 33.4 % (36-46); HEMOGLOBIN 10.8 g/dL (12.0-16.0); LYMPHOCYTES # (AUTO) 1.5 K/uL (1.0-4.8); LYMPHOCYTES % (AUTO) 33.6 % (22.0-44.0); MEAN CORPUSCULAR HGB CONC 32.2 G/dL (31.0-37.0); MEAN CORPUSCULAR VOLUME 93 fL (80-100); MONOCYTES # (AUTO) 0.2 K/uL (0.1-1.0); MONOCYTES % (AUTO) 4.7 % (2.0-9.0); NEUTROPHILS # (AUTO) 2.7 K/uL (1.8-7.7); NEUTROPHILS % (AUTO) 59.9 % (40.0-70.0); PLATELET COUNT (AUTO) 164 K/uL (150-450); RED BLOOD CELL COUNT(AUTO) 3.59 MIL/uL (4.00-5.20); RED CELL DISTRIBUTION WIDTH 15.5 % (11.5-14.5)
[2022-05-09 08:02] LABS: ANION GAP 5 mmol/L (8-16); CALCIUM, TOTAL 9.5 mg/dL (8.8-10.5); CARBON DIOXIDE 30 mmol/L (22-29); CHLORIDE 107 mmol/L (98-107); CREATININE 0.65 mg/dL (0.60-1.30); GLUCOSE,RANDOM 87 mg/dL (70-110); SODIUM SERUM 142 mmol/L (136-145); UREA NITROGEN, BLOOD 10 mg/dL (7-18)
[2022-05-09 08:03] LABS: GLOMERULAR FILTR. RATE CALC > 60 mL/min (>60)
[2022-05-09 08:10] VITALS: BP 135/67
[2022-05-09] MEDS: DOCUSATE SODIUM 100 MG CAPSULE PO SCH ×2 (09:26→20:26)
[2022-05-09] MEDS: MONTELUKAST SODIUM 10 MG TABLET PO SCH (09:27)
[2022-05-09] MEDS: QUEtiapine FUMARATE 100 MG TABLET PO SCH ×3 (09:27→20:26)
[2022-05-09] MEDS: DIVALPROEX SODIUM 500 MG DR TABLET PO SCH ×2 (09:27→20:26)
[2022-05-09 16:01] VITALS: BP 113/83
[2022-05-09 19:08] VITALS: BP 121/76
[2022-05-09] MEDS: DESMOPRESSIN ACETATE 0.2 MG TABLET PO SCH (20:26)
[2022-05-10] MEDS: LEVOTHYROXINE SODIUM 25 MCG TABLET PO SCH (05:58)
[2022-05-10 06:07] VITALS: BP 117/63
[2022-05-10 07:21] VITALS: BP 120/68
[2022-05-10] MEDS: DOCUSATE SODIUM 100 MG CAPSULE PO SCH ×2 (09:00→19:42)
[2022-05-10] MEDS: QUEtiapine FUMARATE 100 MG TABLET PO SCH ×3 (09:11→19:42)
[2022-05-10] MEDS: DIVALPROEX SODIUM 500 MG DR TABLET PO SCH ×2 (09:11→19:42)
[2022-05-10] MEDS: MONTELUKAST SODIUM 10 MG TABLET PO SCH (09:11)
[2022-05-10 15:23] VITALS: BP 118/72
[2022-05-10] MEDS: DESMOPRESSIN ACETATE 0.2 MG TABLET PO SCH (19:42)
[2022-05-10 20:25] VITALS: BP 124/66
[2022-05-11] MEDS: LEVOTHYROXINE SODIUM 25 MCG TABLET PO SCH (05:50)
[2022-05-11 07:24] VITALS: BP 126/68
[2022-05-11] MEDS: QUEtiapine FUMARATE 100 MG TABLET PO SCH ×3 (08:55→21:07)
[2022-05-11] MEDS: MONTELUKAST SODIUM 10 MG TABLET PO SCH (08:55)
[2022-05-11] MEDS: DIVALPROEX SODIUM 500 MG DR TABLET PO SCH ×2 (08:56→21:07)
[2022-05-11] MEDS: DOCUSATE SODIUM 100 MG CAPSULE PO SCH ×2 (08:56→21:07)
[2022-05-11 15:16] VITALS: BP 118/72
[2022-05-11 19:24] VITALS: BP 120/71
[2022-05-11] MEDS: DESMOPRESSIN ACETATE 0.2 MG TABLET PO SCH (21:08)
[2022-05-12 05:12] VITALS: BP 104/79
[2022-05-12] MEDS: LEVOTHYROXINE SODIUM 25 MCG TABLET PO SCH (05:27)
[2022-05-12 07:27] VITALS: BP 106/72
[2022-05-12] MEDS: MONTELUKAST SODIUM 10 MG TABLET PO SCH (08:44)
[2022-05-12] MEDS: DIVALPROEX SODIUM 500 MG DR TABLET PO SCH ×2 (08:44→21:25)
[2022-05-12] MEDS: DOCUSATE SODIUM 100 MG CAPSULE PO SCH ×2 (08:44→21:25)
[2022-05-12] MEDS: QUEtiapine FUMARATE 100 MG TABLET PO SCH ×3 (08:45→21:25)
[2022-05-12] MEDS: ACETAMINOPHEN 325 MG TABLET PO PRN (08:48)
[2022-05-12 11:07] VITALS: BP 104/80
[2022-05-12 15:30] VITALS: BP 129/70
[2022-05-12 19:15] VITALS: BP 125/60
[2022-05-12] MEDS: DESMOPRESSIN ACETATE 0.2 MG TABLET PO SCH (21:25)
[2022-05-13 05:00] VITALS: BP 119/70
[2022-05-13] MEDS: LEVOTHYROXINE SODIUM 25 MCG TABLET PO SCH (05:33)
[2022-05-13 08:12] VITALS: BP 130/65
[2022-05-13] MEDS: DIVALPROEX SODIUM 500 MG DR TABLET PO SCH ×2 (09:34→19:44)
[2022-05-13] MEDS: QUEtiapine FUMARATE 100 MG TABLET PO SCH ×3 (09:34→19:44)
[2022-05-13] MEDS: MONTELUKAST SODIUM 10 MG TABLET PO SCH (09:34)
[2022-05-13] MEDS: DOCUSATE SODIUM 100 MG CAPSULE PO SCH ×2 (09:34→19:45)
[2022-05-13] MEDS ORDERED: DOCU-385 PO (13:36)
[2022-05-13] MEDS ORDERED: QUET100T PO (13:38)
[2022-05-13] MEDS ORDERED: BISA-151 PO (13:39)
[2022-05-13] MEDS ORDERED: LEVO125T95 PO (13:40)
[2022-05-13 15:29] VITALS: BP 147/74
[2022-05-13 19:45] VITALS: BP 130/62
[2022-05-13] MEDS: DESMOPRESSIN ACETATE 0.2 MG TABLET PO SCH (19:45)
[2022-05-13] MEDS: ACETAMINOPHEN 325 MG TABLET PO PRN (19:55)
[2022-05-14 05:30] VITALS: BP 103/63
[2022-05-14] MEDS: LEVOTHYROXINE SODIUM 25 MCG TABLET PO SCH (05:39)
[2022-05-14 07:23] VITALS: BP 110/64
[2022-05-14] MEDS: QUEtiapine FUMARATE 100 MG TABLET PO SCH ×3 (08:28→20:03)
[2022-05-14] MEDS: DIVALPROEX SODIUM 500 MG DR TABLET PO SCH ×2 (08:28→20:03)
[2022-05-14] MEDS: MONTELUKAST SODIUM 10 MG TABLET PO SCH (08:28)
[2022-05-14] MEDS: DOCUSATE SODIUM 100 MG CAPSULE PO SCH ×2 (08:30→20:03)
[2022-05-14 15:14] VITALS: BP 124/72
[2022-05-14] MEDS: DESMOPRESSIN ACETATE 0.2 MG TABLET PO SCH (20:02)
[2022-05-14 20:45] VITALS: BP 110/75
[2022-05-15 04:00] VITALS: BP 122/82
[2022-05-15] MEDS: LEVOTHYROXINE SODIUM 25 MCG TABLET PO SCH (05:04)
[2022-05-15] MEDS ORDERED: DiphenhydrAMINE HCL 50 MG/ML VIAL IM ONE (07:30)
[2022-05-15] MEDS ORDERED: HALOPERIDOL LACTATE 5 MG/ML VIAL IM ONE (07:30)
[2022-05-15 07:34] VITALS: BP 101/73
[2022-05-15] MEDS: DOCUSATE SODIUM 100 MG CAPSULE PO SCH ×2 (09:07→20:10)
[2022-05-15] MEDS: QUEtiapine FUMARATE 100 MG TABLET PO SCH ×3 (09:07→20:10)
[2022-05-15] MEDS: DIVALPROEX SODIUM 500 MG DR TABLET PO SCH ×2 (09:08→20:10)
[2022-05-15] MEDS: MONTELUKAST SODIUM 10 MG TABLET PO SCH (09:08)
[2022-05-15] MEDS: MAGNESIUM HYDROXIDE SUSPENSION 30 ML UDCUP PO PRN (14:24)
[2022-05-15 15:30] VITALS: BP 118/58
[2022-05-15 19:30] VITALS: BP 130/93
[2022-05-15] MEDS: DESMOPRESSIN ACETATE 0.2 MG TABLET PO SCH (20:10)
[2022-05-16 05:00] VITALS: BP 108/71
[2022-05-16] MEDS: LEVOTHYROXINE SODIUM 25 MCG TABLET PO SCH (06:24)
[2022-05-16 07:19] VITALS: BP 118/74
[2022-05-16] MEDS: DIVALPROEX SODIUM 500 MG DR TABLET PO SCH ×2 (09:17→20:36)
[2022-05-16] MEDS: QUEtiapine FUMARATE 100 MG TABLET PO SCH ×3 (09:17→20:35)
[2022-05-16] MEDS: DOCUSATE SODIUM 100 MG CAPSULE PO SCH ×2 (09:17→20:35)
[2022-05-16] MEDS: MONTELUKAST SODIUM 10 MG TABLET PO SCH (09:17)
[2022-05-16 15:28] VITALS: BP 124/70
[2022-05-16 20:32] VITALS: BP 120/84
[2022-05-16] MEDS: DESMOPRESSIN ACETATE 0.2 MG TABLET PO SCH (20:36)
[2022-05-17] MEDS: LEVOTHYROXINE SODIUM 25 MCG TABLET PO SCH (06:21)
[2022-05-17 06:31] VITALS: BP 131/61
[2022-05-17 07:21] VITALS: BP 100/68
[2022-05-17] MEDS: DOCUSATE SODIUM 100 MG CAPSULE PO SCH ×2 (09:08→21:09)
[2022-05-17] MEDS: DIVALPROEX SODIUM 500 MG DR TABLET PO SCH ×2 (09:09→21:09)
[2022-05-17] MEDS: QUEtiapine FUMARATE 100 MG TABLET PO SCH ×3 (09:09→21:09)
[2022-05-17] MEDS: MONTELUKAST SODIUM 10 MG TABLET PO SCH (09:09)
[2022-05-17 15:24] VITALS: BP 95/51
[2022-05-17 20:00] VITALS: BP 103/66
[2022-05-17] MEDS: DESMOPRESSIN ACETATE 0.2 MG TABLET PO SCH (21:09)
[2022-05-18 05:00] VITALS: BP 108/86
[2022-05-18 07:22] VITALS: BP 114/57
[2022-05-18] MEDS: LEVOTHYROXINE SODIUM 25 MCG TABLET PO SCH (07:37)
[2022-05-18] MEDS: QUEtiapine FUMARATE 100 MG TABLET PO SCH ×3 (10:12→20:26)
[2022-05-18] MEDS: MONTELUKAST SODIUM 10 MG TABLET PO SCH (10:12)
[2022-05-18] MEDS: DIVALPROEX SODIUM 500 MG DR TABLET PO SCH ×2 (10:12→20:26)
[2022-05-18] MEDS: DOCUSATE SODIUM 100 MG CAPSULE PO SCH ×2 (10:12→20:26)
[2022-05-18] MEDS: DESMOPRESSIN ACETATE 0.2 MG TABLET PO SCH (20:27)
[2022-05-18 20:30] VITALS: BP 137/66
[2022-05-18] MEDS: MAGNESIUM HYDROXIDE SUSPENSION 30 ML UDCUP PO PRN (20:32)
[2022-05-19] MEDS: LEVOTHYROXINE SODIUM 25 MCG TABLET PO SCH (05:43)
[2022-05-19 06:50] LABS: BASOPHILS % (AUTO) 0.7 % (0.0-2.0); EOSINOPHILS % (AUTO) 3.6 % (1.0-6.0); HEMATOCRIT 32.5 % (36-46); HEMOGLOBIN 10.5 g/dL (12.0-16.0); LYMPHOCYTES # (AUTO) 3.1 K/uL (1.0-4.8); LYMPHOCYTES % (AUTO) 33.4 % (22.0-44.0); MEAN CORPUSCULAR HEMOGLOBIN 30.3 pg (26.0-34.0); MEAN CORPUSCULAR HGB CONC 32.3 G/dL (31.0-37.0); MEAN CORPUSCULAR VOLUME 94 fL (80-100); MONOCYTES # (AUTO) 0.7 K/uL (0.1-1.0); MONOCYTES % (AUTO) 7.1 % (2.0-9.0); NEUTROPHILS # (AUTO) 5.1 K/uL (1.8-7.7); NEUTROPHILS % (AUTO) 55.2 % (40.0-70.0); RED BLOOD CELL COUNT(AUTO) 3.47 MIL/uL (4.00-5.20); RED CELL DISTRIBUTION WIDTH 15.7 % (11.5-14.5)
[2022-05-19 07:14] LABS: ANION GAP 6 mmol/L (8-16); CALCIUM, TOTAL 9.4 mg/dL (8.8-10.5); CARBON DIOXIDE 27 mmol/L (22-29); CHLORIDE 102 mmol/L (98-107); CREATININE 0.56 mg/dL (0.60-1.30); GLUCOSE,RANDOM 75 mg/dL (70-110); POTASSIUM 5.6 mmol/L (3.5-5.1); SODIUM SERUM 135 mmol/L (136-145); UREA NITROGEN, BLOOD 16 mg/dL (7-18)
[2022-05-19 07:18] LABS: GLOMERULAR FILTR. RATE CALC > 60 mL/min (>60)
[2022-05-19 07:21] VITALS: BP 134/68
[2022-05-19 07:40] LABS: PLATELET COUNT (AUTO) 193 K/uL (150-450)
[2022-05-19] MEDS: DOCUSATE SODIUM 100 MG CAPSULE PO SCH ×2 (08:07→20:35)
[2022-05-19] MEDS: DIVALPROEX SODIUM 500 MG DR TABLET PO SCH ×2 (08:07→20:35)
[2022-05-19] MEDS: MONTELUKAST SODIUM 10 MG TABLET PO SCH (08:07)
[2022-05-19] MEDS: QUEtiapine FUMARATE 100 MG TABLET PO SCH ×3 (08:09→20:35)
[2022-05-19 14:52] VITALS: BP 128/72
[2022-05-19] MEDS: DESMOPRESSIN ACETATE 0.2 MG TABLET PO SCH (20:35)
[2022-05-19 20:42] VITALS: BP 127/58
[2022-05-20 06:22] VITALS: BP 141/67
[2022-05-20] MEDS: LEVOTHYROXINE SODIUM 25 MCG TABLET PO SCH (06:31)
[2022-05-20 07:28] VITALS: BP 140/68
[2022-05-20] MEDS: DIVALPROEX SODIUM 500 MG DR TABLET PO SCH ×2 (08:55→23:23)
[2022-05-20] MEDS: QUEtiapine FUMARATE 100 MG TABLET PO SCH ×3 (08:55→23:23)
[2022-05-20] MEDS: DOCUSATE SODIUM 100 MG CAPSULE PO SCH ×2 (08:55→23:23)
[2022-05-20] MEDS: MONTELUKAST SODIUM 10 MG TABLET PO SCH (08:55)
[2022-05-20 11:48] LABS: ANION GAP 7 mmol/L (8-16); CALCIUM, TOTAL 9.3 mg/dL (8.8-10.5); CARBON DIOXIDE 26 mmol/L (22-29); CHLORIDE 100 mmol/L (98-107); CREATININE 0.55 mg/dL (0.60-1.30); GLOMERULAR FILTR. RATE CALC > 60 mL/min (>60); GLUCOSE,RANDOM 112 mg/dL (70-110); POTASSIUM 4.4 mmol/L (3.5-5.1); SODIUM SERUM 133 mmol/L (136-145); UREA NITROGEN, BLOOD 14 mg/dL (7-18)
[2022-05-20 15:07] VITALS: BP 13/70
[2022-05-20 23:23] VITALS: BP 143/72
[2022-05-20] MEDS: DESMOPRESSIN ACETATE 0.2 MG TABLET PO SCH (23:23)
[2022-05-20] MEDS ORDERED: LORazepam 2 MG/ML VIAL IM ONE (23:45)
[2022-05-20] MEDS ORDERED: DiphenhydrAMINE HCL 50 MG/ML VIAL IM ONE (23:45)
[2022-05-21 05:42] VITALS: BP 121/83
[2022-05-21] MEDS ORDERED: DiphenhydrAMINE HCL 50 MG/ML VIAL IM ONE (06:45)
[2022-05-21] MEDS ORDERED: LORazepam 2 MG/ML VIAL IM ONE (06:45)
[2022-05-21] MEDS: LEVOTHYROXINE SODIUM 25 MCG TABLET PO SCH (06:56)
[2022-05-21 07:31] VITALS: BP 146/59
[2022-05-21] MEDS: MONTELUKAST SODIUM 10 MG TABLET PO SCH (08:06)
[2022-05-21] MEDS: DIVALPROEX SODIUM 500 MG DR TABLET PO SCH ×2 (08:06→22:53)
[2022-05-21] MEDS: QUEtiapine FUMARATE 100 MG TABLET PO SCH ×3 (08:06→22:52)
[2022-05-21] MEDS: DOCUSATE SODIUM 100 MG CAPSULE PO SCH ×2 (08:06→22:52)
[2022-05-21] MEDS: DESMOPRESSIN ACETATE 0.2 MG TABLET PO SCH (22:53)
[2022-05-21 23:06] VITALS: BP 117/72
[2022-05-22] MEDS: LEVOTHYROXINE SODIUM 25 MCG TABLET PO SCH (06:10)
[2022-05-22 07:13] VITALS: BP 108/65
[2022-05-22] MEDS ORDERED: SODIUM CL IRRIG SOLN BOTTLE 250 ML IRRIG ONE (08:28)
[2022-05-22] MEDS: DOCUSATE SODIUM 100 MG CAPSULE PO SCH ×2 (09:21→21:13)
[2022-05-22] MEDS: MONTELUKAST SODIUM 10 MG TABLET PO SCH (09:21)
[2022-05-22] MEDS: QUEtiapine FUMARATE 100 MG TABLET PO SCH ×3 (09:21→21:13)
[2022-05-22] MEDS: DIVALPROEX SODIUM 500 MG DR TABLET PO SCH ×2 (09:24→21:18)
[2022-05-22 15:39] VITALS: BP 106/57
[2022-05-22] MEDS: DESMOPRESSIN ACETATE 0.2 MG TABLET PO SCH (21:14)
[2022-05-23] MEDS: LEVOTHYROXINE SODIUM 25 MCG TABLET PO SCH ×3 (06:30→07:10)
[2022-05-23 08:19] VITALS: BP 130/60
[2022-05-23] MEDS: DOCUSATE SODIUM 100 MG CAPSULE PO SCH ×2 (08:35→21:05)
[2022-05-23] MEDS: DIVALPROEX SODIUM 500 MG DR TABLET PO SCH ×2 (08:35→21:05)
[2022-05-23] MEDS: MONTELUKAST SODIUM 10 MG TABLET PO SCH (08:35)
[2022-05-23] MEDS: QUEtiapine FUMARATE 100 MG TABLET PO SCH ×3 (08:35→21:05)
[2022-05-23 10:25] LABS: COVID AG,FIA SOURCE NASAL SWAB
[2022-05-23] MEDS: DESMOPRESSIN ACETATE 0.2 MG TABLET PO SCH (21:05)
[2022-05-24] MEDS: ACETAMINOPHEN 325 MG TABLET PO PRN (03:45)
[2022-05-24] MEDS: LEVOTHYROXINE SODIUM 25 MCG TABLET PO SCH (05:53)
[2022-05-24] MEDS ORDERED: LORazepam 2 MG/ML VIAL IM ONE (06:15)
[2022-05-24 07:30] VITALS: BP 110/73
[2022-05-24] MEDS: DOCUSATE SODIUM 100 MG CAPSULE PO SCH ×2 (08:21→20:31)
[2022-05-24] MEDS: MONTELUKAST SODIUM 10 MG TABLET PO SCH (08:21)
[2022-05-24] MEDS: DIVALPROEX SODIUM 500 MG DR TABLET PO SCH ×2 (08:21→20:31)
[2022-05-24] MEDS: QUEtiapine FUMARATE 100 MG TABLET PO SCH ×3 (08:22→20:30)
[2022-05-24 16:26] VITALS: BP 117/80
[2022-05-24] MEDS: DESMOPRESSIN ACETATE 0.2 MG TABLET PO SCH (20:30)
[2022-05-24 21:46] VITALS: BP 108/64
[2022-05-25 05:30] VITALS: BP 109/69
[2022-05-25] MEDS: LEVOTHYROXINE SODIUM 25 MCG TABLET PO SCH (06:03)
[2022-05-25 07:43] VITALS: BP 114/70
[2022-05-25] MEDS: DIVALPROEX SODIUM 500 MG DR TABLET PO SCH ×2 (09:05→21:12)
[2022-05-25] MEDS: QUEtiapine FUMARATE 100 MG TABLET PO SCH ×3 (09:05→21:12)
[2022-05-25] MEDS: DOCUSATE SODIUM 100 MG CAPSULE PO SCH ×2 (09:05→21:12)
[2022-05-25] MEDS: MONTELUKAST SODIUM 10 MG TABLET PO SCH (09:05)
[2022-05-25 15:12] VITALS: BP 122/74
[2022-05-25] MEDS: DESMOPRESSIN ACETATE 0.2 MG TABLET PO SCH (21:12)
[2022-05-26] MEDS: LEVOTHYROXINE SODIUM 25 MCG TABLET PO SCH (05:39)
[2022-05-26 05:42] VITALS: BP 105/57
[2022-05-26] MEDS: ACETAMINOPHEN 325 MG TABLET PO PRN ×2 (05:42→20:59)
[2022-05-26 07:18] VITALS: BP 110/60
[2022-05-26] MEDS: QUEtiapine FUMARATE 100 MG TABLET PO SCH ×3 (08:05→20:58)
[2022-05-26] MEDS: DIVALPROEX SODIUM 500 MG DR TABLET PO SCH ×2 (08:05→20:58)
[2022-05-26] MEDS: DOCUSATE SODIUM 100 MG CAPSULE PO SCH ×2 (08:05→20:59)
[2022-05-26] MEDS: MONTELUKAST SODIUM 10 MG TABLET PO SCH (08:05)
[2022-05-26 09:13] LABS: COVID AG,FIA SOURCE NASAL SWAB
[2022-05-26 09:58] LABS: INFLUENZA TYPE A NEGATIVE FOR TYPE A (NEGATIVE); INFLUENZA TYPE B NEGATIVE FOR TYPE B (NEGATIVE)
[2022-05-26 14:53] VITALS: BP 108/68
[2022-05-26] MEDS: DESMOPRESSIN ACETATE 0.2 MG TABLET PO SCH (20:58)
[2022-05-26 21:33] VITALS: BP 109/55
[2022-05-27] MEDS: ACETAMINOPHEN 325 MG TABLET PO PRN ×2 (02:57→21:03)
[2022-05-27 04:02] VITALS: BP 120/71
[2022-05-27] MEDS: LEVOTHYROXINE SODIUM 25 MCG TABLET PO SCH ×2 (06:23→12:19)
[2022-05-27 07:28] VITALS: BP 105/74
[2022-05-27] MEDS: DIVALPROEX SODIUM 500 MG DR TABLET PO SCH ×2 (12:14→21:03)
[2022-05-27] MEDS: DOCUSATE SODIUM 100 MG CAPSULE PO SCH ×2 (12:14→21:03)
[2022-05-27] MEDS: MONTELUKAST SODIUM 10 MG TABLET PO SCH (12:14)
[2022-05-27] MEDS ORDERED: REMDESIVIR 200 MG in SODIUM CHLORIDE 0.9% 250 ML IV ONE (12:15)
[2022-05-27] MEDS: DESMOPRESSIN ACETATE 0.2 MG TABLET PO SCH (12:19)
[2022-05-27] MEDS: QUEtiapine FUMARATE 100 MG TABLET PO SCH ×3 (12:19→21:02)
[2022-05-27 15:17] VITALS: BP 114/72
[2022-05-27 19:30] VITALS: BP 122/55
[2022-05-28 04:00] VITALS: BP 131/57
[2022-05-28 07:25] VITALS: BP 128/58
[2022-05-28] MEDS: DIVALPROEX SODIUM 500 MG DR TABLET PO SCH ×2 (08:49→22:40)
[2022-05-28] MEDS: QUEtiapine FUMARATE 100 MG TABLET PO SCH ×3 (08:49→22:40)
[2022-05-28] MEDS: MONTELUKAST SODIUM 10 MG TABLET PO SCH (08:49)
[2022-05-28] MEDS: DOCUSATE SODIUM 100 MG CAPSULE PO SCH ×2 (08:49→22:40)
[2022-05-28] MEDS: ACETAMINOPHEN 325 MG TABLET PO PRN ×2 (13:01→22:49)
[2022-05-28] MEDS ORDERED: REMDESIVIR 100 MG in SODIUM CHLORIDE 0.9% 250 ML IV SCH (14:00)
[2022-05-28 14:35] LABS: BASOPHILS % (AUTO) 0.2 % (0.0-2.0); EOSINOPHILS % (AUTO) 0 % (1.0-6.0); HEMATOCRIT 30.3 % (36-46); HEMOGLOBIN 10.1 g/dL (12.0-16.0); LYMPHOCYTES # (AUTO) 1.4 K/uL (1.0-4.8); LYMPHOCYTES % (AUTO) 14.2 % (22.0-44.0); MEAN CORPUSCULAR HEMOGLOBIN 29.7 pg (26.0-34.0); MEAN CORPUSCULAR HGB CONC 33.3 G/dL (31.0-37.0); MEAN CORPUSCULAR VOLUME 89 fL (80-100); MONOCYTES # (AUTO) 0.6 K/uL (0.1-1.0); NEUTROPHILS # (AUTO) 7.8 K/uL (1.8-7.7); NEUTROPHILS % (AUTO) 79.6 % (40.0-70.0); PLATELET COUNT (AUTO) 240 K/uL (150-450); RED BLOOD CELL COUNT(AUTO) 3.39 MIL/uL (4.00-5.20); RED CELL DISTRIBUTION WIDTH 14.9 % (11.5-14.5)
[2022-05-28 15:02] LABS: ALANINE AMINOTRANSFERASE 11 U/L (12-78); ALBUMIN 3.1 g/dL (3.4-5.0); ALKALINE PHOSPHATASE 87 U/L (46-116); ANION GAP 5 mmol/L (8-16); ASPARTATE AMINOTRANSFERASE 30 U/L (15-37); BILIRUBIN,TOTAL 0.4 mg/dL (0.1-1.0); C-REACTIVE PROTEIN QUANT 21.38 mg/dL (0.00-0.30); CALCIUM, TOTAL 9.3 mg/dL (8.8-10.5); CARBON DIOXIDE 30 mmol/L (22-29); CHLORIDE 93 mmol/L (98-107); CREATININE 0.68 mg/dL (0.60-1.30); FERRITIN 179 ng/mL (8-252); GLOMERULAR FILTR. RATE CALC > 60 mL/min (>60); GLUCOSE,RANDOM 118 mg/dL (70-110); POTASSIUM 4.2 mmol/L (3.5-5.1); SODIUM SERUM 128 mmol/L (136-145); TOTAL PROTEIN, SERUM 7.8 g/dL (6.4-8.2); UREA NITROGEN, BLOOD 19 mg/dL (7-18)
[2022-05-28 15:27] VITALS: BP 126/62
[2022-05-28] MEDS: DESMOPRESSIN ACETATE 0.2 MG TABLET PO SCH (22:40)
[2022-05-28 23:02] VITALS: BP 110/59
[2022-05-29] MEDS: LEVOTHYROXINE SODIUM 25 MCG TABLET PO SCH (05:33)
[2022-05-29 05:38] VITALS: BP 107/48
[2022-05-29] MEDS: DOCUSATE SODIUM 100 MG CAPSULE PO SCH ×2 (08:39→21:58)
[2022-05-29] MEDS: QUEtiapine FUMARATE 100 MG TABLET PO SCH ×3 (08:39→21:58)
[2022-05-29] MEDS: DIVALPROEX SODIUM 500 MG DR TABLET PO SCH ×2 (08:39→21:58)
[2022-05-29] MEDS: MONTELUKAST SODIUM 10 MG TABLET PO SCH (08:39)
[2022-05-29 16:02] VITALS: BP 124/63
[2022-05-29] MEDS: DESMOPRESSIN ACETATE 0.2 MG TABLET PO SCH (21:58)
[2022-05-29 22:10] VITALS: BP 103/38
[2022-05-30 06:05] VITALS: BP 121/65
[2022-05-30] MEDS: LEVOTHYROXINE SODIUM 25 MCG TABLET PO SCH (06:13)
[2022-05-30 07:32] VITALS: BP 124/68
[2022-05-30 07:58] LABS: ALANINE AMINOTRANSFERASE 11 U/L (12-78); ALKALINE PHOSPHATASE 107 U/L (46-116); ANION GAP 6 mmol/L (8-16); ASPARTATE AMINOTRANSFERASE 28 U/L (15-37); BILIRUBIN,TOTAL 0.4 mg/dL (0.1-1.0); C-REACTIVE PROTEIN QUANT 24.48 mg/dL (0.00-0.30); CALCIUM, TOTAL 9.7 mg/dL (8.8-10.5); CARBON DIOXIDE 29 mmol/L (22-29); CHLORIDE 94 mmol/L (98-107); GLUCOSE,RANDOM 135 mg/dL (70-110); POTASSIUM 4.7 mmol/L (3.5-5.1); SODIUM SERUM 129 mmol/L (136-145); TOTAL PROTEIN, SERUM 8.1 g/dL (6.4-8.2); UREA NITROGEN, BLOOD 10 mg/dL (7-18)
[2022-05-30 08:01] LABS: GLOMERULAR FILTR. RATE CALC > 60 mL/min (>60)
[2022-05-30] MEDS: DOCUSATE SODIUM 100 MG CAPSULE PO SCH ×2 (08:32→21:41)
[2022-05-30] MEDS: DIVALPROEX SODIUM 500 MG DR TABLET PO SCH ×2 (08:32→21:42)
[2022-05-30] MEDS: MONTELUKAST SODIUM 10 MG TABLET PO SCH (08:32)
[2022-05-30] MEDS: QUEtiapine FUMARATE 100 MG TABLET PO SCH ×3 (08:32→21:43)
[2022-05-30] MEDS ORDERED: SODIUM CHLORIDE 0.9% 1,000 ML IV ONE (09:00)
[2022-05-30 15:24] VITALS: BP 118/72
[2022-05-30] MEDS: HEPARIN SODIUM,PORCINE 5,000 UNITS/ML VIAL SQ SCH ×2 (16:00→23:29)
[2022-05-30 19:40] VITALS: BP 123/61
[2022-05-30] MEDS: DESMOPRESSIN ACETATE 0.2 MG TABLET PO SCH (21:42)
[2022-05-30] MEDS: ACETAMINOPHEN 325 MG TABLET PO PRN (21:55)
[2022-05-31] MEDS: LEVOTHYROXINE SODIUM 25 MCG TABLET PO SCH (05:44)
[2022-05-31] MEDS: DOCUSATE SODIUM 100 MG CAPSULE PO SCH ×2 (08:06→20:35)
[2022-05-31] MEDS: MONTELUKAST SODIUM 10 MG TABLET PO SCH (08:06)
[2022-05-31] MEDS: HEPARIN SODIUM,PORCINE 5,000 UNITS/ML VIAL SQ SCH ×3 (08:06→23:59)
[2022-05-31] MEDS: DIVALPROEX SODIUM 500 MG DR TABLET PO SCH ×2 (08:06→20:35)
[2022-05-31] MEDS: QUEtiapine FUMARATE 100 MG TABLET PO SCH ×3 (08:06→20:35)
[2022-05-31 15:31] VITALS: BP 104/68
[2022-05-31 15:37] LABS: ANION GAP 6 mmol/L (8-16); CALCIUM, TOTAL 9.3 mg/dL (8.8-10.5); CARBON DIOXIDE 30 mmol/L (22-29); CHLORIDE 98 mmol/L (98-107); CREATININE 0.42 mg/dL (0.60-1.30); GLUCOSE,RANDOM 124 mg/dL (70-110); POTASSIUM 4.5 mmol/L (3.5-5.1); SODIUM SERUM 134 mmol/L (136-145); UREA NITROGEN, BLOOD 13 mg/dL (7-18)
[2022-05-31 15:40] LABS: GLOMERULAR FILTR. RATE CALC > 60 mL/min (>60)
[2022-05-31 15:54] LABS: C-REACTIVE PROTEIN QUANT 18.93 mg/dL (0.00-0.30)
[2022-05-31] MEDS: ACETAMINOPHEN 325 MG TABLET PO PRN (20:36)
[2022-05-31] MEDS: DESMOPRESSIN ACETATE 0.2 MG TABLET PO SCH (20:36)
[2022-05-31 20:44] VITALS: BP 136/51
[2022-06-01] MEDS ORDERED: HALOPERIDOL LACTATE 5 MG/ML VIAL IM SCH (01:45)
[2022-06-01] MEDS: MONTELUKAST SODIUM 10 MG TABLET PO SCH (08:17)
[2022-06-01] MEDS: DOCUSATE SODIUM 100 MG CAPSULE PO SCH ×2 (08:18→21:48)
[2022-06-01] MEDS: QUEtiapine FUMARATE 100 MG TABLET PO SCH ×3 (08:18→21:48)
[2022-06-01] MEDS: HEPARIN SODIUM,PORCINE 5,000 UNITS/ML VIAL SQ SCH ×3 (08:18→23:32)
[2022-06-01] MEDS: LEVOTHYROXINE SODIUM 25 MCG TABLET PO SCH (08:18)
[2022-06-01] MEDS: DIVALPROEX SODIUM 500 MG DR TABLET PO SCH ×2 (08:18→21:48)
[2022-06-01 08:50] VITALS: BP 122/58
[2022-06-01] MEDS: DESMOPRESSIN ACETATE 0.2 MG TABLET PO SCH (21:48)
[2022-06-01 22:00] VITALS: BP 104/60
[2022-06-02 06:00] VITALS: BP 106/75
[2022-06-02] MEDS: LEVOTHYROXINE SODIUM 25 MCG TABLET PO SCH ×3 (06:30→08:47)
[2022-06-02 07:30] VITALS: BP 110/76
[2022-06-02] MEDS: DOCUSATE SODIUM 100 MG CAPSULE PO SCH ×2 (08:46→21:26)
[2022-06-02] MEDS: HEPARIN SODIUM,PORCINE 5,000 UNITS/ML VIAL SQ SCH ×3 (08:46→23:53)
[2022-06-02] MEDS: MONTELUKAST SODIUM 10 MG TABLET PO SCH (08:46)
[2022-06-02] MEDS: DIVALPROEX SODIUM 500 MG DR TABLET PO SCH ×2 (08:47→21:25)
[2022-06-02] MEDS: QUEtiapine FUMARATE 100 MG TABLET PO SCH ×3 (08:47→21:26)
[2022-06-02] MEDS: ACETAMINOPHEN 325 MG TABLET PO PRN ×2 (11:40→21:26)
[2022-06-02 13:12] LABS: COVID AG,FIA SOURCE NASOPHARYNGEAL
[2022-06-02 13:42] LABS: BASOPHILS % (AUTO) 0.3 % (0.0-2.0); EOSINOPHILS % (AUTO) 0.2 % (1.0-6.0); HEMATOCRIT 28.2 % (36-46); HEMOGLOBIN 9.1 g/dL (12.0-16.0); LYMPHOCYTES % (AUTO) 17.1 % (22.0-44.0); MEAN CORPUSCULAR HEMOGLOBIN 28.7 pg (26.0-34.0); MEAN CORPUSCULAR HGB CONC 32.3 G/dL (31.0-37.0); MEAN CORPUSCULAR VOLUME 89 fL (80-100); MONOCYTES # (AUTO) 1.2 K/uL (0.1-1.0); MONOCYTES % (AUTO) 9.7 % (2.0-9.0); NEUTROPHILS # (AUTO) 8.7 K/uL (1.8-7.7); NEUTROPHILS % (AUTO) 72.7 % (40.0-70.0); PLATELET COUNT (AUTO) 366 K/uL (150-450); RED BLOOD CELL COUNT(AUTO) 3.17 MIL/uL (4.00-5.20); RED CELL DISTRIBUTION WIDTH 15.7 % (11.5-14.5)
[2022-06-02 13:51] LABS: ANION GAP 4 mmol/L (8-16); CALCIUM, TOTAL 9.4 mg/dL (8.8-10.5); CARBON DIOXIDE 29 mmol/L (22-29); CHLORIDE 98 mmol/L (98-107); GLUCOSE,RANDOM 119 mg/dL (70-110); POTASSIUM 4.5 mmol/L (3.5-5.1); SODIUM SERUM 131 mmol/L (136-145); UREA NITROGEN, BLOOD 12 mg/dL (7-18)
[2022-06-02 13:52] LABS: GLOMERULAR FILTR. RATE CALC > 60 mL/min (>60)
[2022-06-02 15:08] VITALS: BP 118/78
[2022-06-02] MEDS: DESMOPRESSIN ACETATE 0.2 MG TABLET PO SCH (21:25)
[2022-06-02 23:45] VITALS: BP 103/60
[2022-06-03 07:29] VITALS: BP 112/68
[2022-06-03] MEDS: DIVALPROEX SODIUM 500 MG DR TABLET PO SCH ×2 (08:50→19:54)
[2022-06-03] MEDS: MONTELUKAST SODIUM 10 MG TABLET PO SCH (08:50)
[2022-06-03] MEDS: DOCUSATE SODIUM 100 MG CAPSULE PO SCH ×2 (08:50→19:54)
[2022-06-03] MEDS: QUEtiapine FUMARATE 100 MG TABLET PO SCH ×3 (08:50→19:54)
[2022-06-03] MEDS: HEPARIN SODIUM,PORCINE 5,000 UNITS/ML VIAL SQ SCH ×3 (08:52→23:11)
[2022-06-03 15:10] VITALS: BP 124/72
[2022-06-03] MEDS: DESMOPRESSIN ACETATE 0.2 MG TABLET PO SCH (19:55)
[2022-06-03 20:18] VITALS: BP 105/56
[2022-06-04 04:19] VITALS: BP 107/51
[2022-06-04] MEDS: LEVOTHYROXINE SODIUM 25 MCG TABLET PO SCH (06:05)
[2022-06-04 07:15] VITALS: BP 106/69
[2022-06-04] MEDS: MONTELUKAST SODIUM 10 MG TABLET PO SCH (08:23)
[2022-06-04] MEDS: HEPARIN SODIUM,PORCINE 5,000 UNITS/ML VIAL SQ SCH ×3 (08:23→23:04)
[2022-06-04] MEDS: DIVALPROEX SODIUM 500 MG DR TABLET PO SCH ×2 (08:23→21:00)
[2022-06-04] MEDS: QUEtiapine FUMARATE 100 MG TABLET PO SCH ×3 (08:23→21:00)
[2022-06-04] MEDS: DOCUSATE SODIUM 100 MG CAPSULE PO SCH ×2 (08:23→21:00)
[2022-06-04 15:04] VITALS: BP 107/71
[2022-06-04 19:35] VITALS: BP 106/54
[2022-06-04] MEDS: DESMOPRESSIN ACETATE 0.2 MG TABLET PO SCH (20:59)
[2022-06-05 04:30] VITALS: BP 106/64
[2022-06-05] MEDS: LEVOTHYROXINE SODIUM 25 MCG TABLET PO SCH (05:28)
[2022-06-05 09:03] VITALS: BP 121/53
[2022-06-05] MEDS: MONTELUKAST SODIUM 10 MG TABLET PO SCH (09:33)
[2022-06-05] MEDS: QUEtiapine FUMARATE 100 MG TABLET PO SCH ×3 (09:33→21:07)
[2022-06-05] MEDS: HEPARIN SODIUM,PORCINE 5,000 UNITS/ML VIAL SQ SCH (09:33)
[2022-06-05] MEDS: DIVALPROEX SODIUM 500 MG DR TABLET PO SCH (09:33)
[2022-06-05] MEDS: DOCUSATE SODIUM 100 MG CAPSULE PO SCH ×2 (09:33→21:07)
[2022-06-05 16:59] VITALS: BP 109/68
[2022-06-05 21:05] VITALS: BP 107/53
[2022-06-05] MEDS: DESMOPRESSIN ACETATE 0.2 MG TABLET PO SCH (21:07)
[2022-06-05] MEDS: ACETAMINOPHEN 325 MG TABLET PO PRN (21:08)
[2022-06-06] MEDS: LEVOTHYROXINE SODIUM 25 MCG TABLET PO SCH (05:59)
[2022-06-06 06:02] VITALS: BP 113/63
[2022-06-06 07:52] VITALS: BP 118/68
[2022-06-06] MEDS: DOCUSATE SODIUM 100 MG CAPSULE PO SCH ×2 (08:58→20:43)
[2022-06-06] MEDS: PRENATAL NO.137/IRON/FOLIC ACID TABLET PO SCH (08:58)
[2022-06-06] MEDS: QUEtiapine FUMARATE 100 MG TABLET PO SCH ×3 (08:58→20:43)
[2022-06-06] MEDS: ENOXAPARIN SODIUM 40 MG/0.4 ML PF SYRINGE SQ SCH (08:59)
[2022-06-06] MEDS: MONTELUKAST SODIUM 10 MG TABLET PO SCH (09:01)
[2022-06-06 15:20] VITALS: BP 112/64
[2022-06-06] MEDS: DESMOPRESSIN ACETATE 0.2 MG TABLET PO SCH (20:43)
[2022-06-06 20:45] VITALS: BP 106/63
[2022-06-07] MEDS: LEVOTHYROXINE SODIUM 25 MCG TABLET PO SCH (06:21)
[2022-06-07 06:27] VITALS: BP 102/75
[2022-06-07 07:25] VITALS: BP 106/76
[2022-06-07] MEDS: DOCUSATE SODIUM 100 MG CAPSULE PO SCH ×3 (09:12→21:00)
[2022-06-07] MEDS: QUEtiapine FUMARATE 100 MG TABLET PO SCH ×4 (09:12→21:00)
[2022-06-07] MEDS: ENOXAPARIN SODIUM 40 MG/0.4 ML PF SYRINGE SQ SCH (09:12)
[2022-06-07] MEDS: PRENATAL NO.137/IRON/FOLIC ACID TABLET PO SCH (09:12)
[2022-06-07] MEDS: MONTELUKAST SODIUM 10 MG TABLET PO SCH (09:12)
[2022-06-07 20:22] VITALS: BP 105/72
[2022-06-07] MEDS: DESMOPRESSIN ACETATE 0.2 MG TABLET PO SCH ×2 (20:28→22:59)
[2022-06-07] MEDS: ETHYL ALCOHOL 62% ANTISEPTIC NASAL SANITIZER 0.6 ML AMPUL NASAL SCH (21:00)
[2022-06-08 06:29] VITALS: BP 102/65
[2022-06-08] MEDS: LEVOTHYROXINE SODIUM 25 MCG TABLET PO SCH ×2 (06:30→08:57)
[2022-06-08 07:33] VITALS: BP 110/68
[2022-06-08] MEDS: ENOXAPARIN SODIUM 40 MG/0.4 ML PF SYRINGE SQ SCH (08:56)
[2022-06-08] MEDS: MONTELUKAST SODIUM 10 MG TABLET PO SCH (08:56)
[2022-06-08] MEDS: PRENATAL NO.137/IRON/FOLIC ACID TABLET PO SCH (08:56)
[2022-06-08] MEDS: DOCUSATE SODIUM 100 MG CAPSULE PO SCH ×2 (08:56→20:09)
[2022-06-08] MEDS: ETHYL ALCOHOL 62% ANTISEPTIC NASAL SANITIZER 0.6 ML AMPUL NASAL SCH ×2 (08:57→20:09)
[2022-06-08] MEDS: QUEtiapine FUMARATE 100 MG TABLET PO SCH ×3 (08:57→20:09)
[2022-06-08 15:04] VITALS: BP 114/72
[2022-06-09] MEDS: HALOPERIDOL LACTATE 5 MG/ML VIAL IM PRN (05:32)
[2022-06-09 07:20] VITALS: BP 108/74
[2022-06-09] MEDS: QUEtiapine FUMARATE 100 MG TABLET PO SCH ×3 (08:21→21:14)
[2022-06-09] MEDS: DOCUSATE SODIUM 100 MG CAPSULE PO SCH ×2 (08:21→21:14)
[2022-06-09] MEDS: ENOXAPARIN SODIUM 40 MG/0.4 ML PF SYRINGE SQ SCH (08:21)
[2022-06-09] MEDS: MONTELUKAST SODIUM 10 MG TABLET PO SCH (08:22)
[2022-06-09] MEDS: PRENATAL NO.137/IRON/FOLIC ACID TABLET PO SCH (08:22)
[2022-06-09] MEDS: ETHYL ALCOHOL 62% ANTISEPTIC NASAL SANITIZER 0.6 ML AMPUL NASAL SCH ×2 (08:23→21:15)
[2022-06-09 15:05] VITALS: BP 110/76
[2022-06-09] MEDS: DESMOPRESSIN ACETATE 0.2 MG TABLET PO SCH (21:15)
[2022-06-10] MEDS: LEVOTHYROXINE SODIUM 25 MCG TABLET PO SCH (06:13)
[2022-06-10] MEDS: ENOXAPARIN SODIUM 40 MG/0.4 ML PF SYRINGE SQ SCH (09:00)
[2022-06-10] MEDS: PRENATAL NO.137/IRON/FOLIC ACID TABLET PO SCH (09:00)
[2022-06-10] MEDS: DOCUSATE SODIUM 100 MG CAPSULE PO SCH ×2 (09:17→20:09)
[2022-06-10] MEDS: ETHYL ALCOHOL 62% ANTISEPTIC NASAL SANITIZER 0.6 ML AMPUL NASAL SCH ×2 (09:17→20:09)
[2022-06-10] MEDS: MONTELUKAST SODIUM 10 MG TABLET PO SCH (09:17)
[2022-06-10] MEDS: QUEtiapine FUMARATE 100 MG TABLET PO SCH ×3 (09:17→20:09)
[2022-06-10 19:25] VITALS: BP 115/89
[2022-06-10] MEDS: DESMOPRESSIN ACETATE 0.2 MG TABLET PO SCH (20:09)
[2022-06-11] MEDS: LEVOTHYROXINE SODIUM 25 MCG TABLET PO SCH (06:23)
[2022-06-11 07:46] VITALS: BP 103/83
[2022-06-11] MEDS: DOCUSATE SODIUM 100 MG CAPSULE PO SCH ×2 (08:19→20:58)
[2022-06-11] MEDS: MONTELUKAST SODIUM 10 MG TABLET PO SCH (08:19)
[2022-06-11] MEDS: ETHYL ALCOHOL 62% ANTISEPTIC NASAL SANITIZER 0.6 ML AMPUL NASAL SCH ×2 (08:19→20:58)
[2022-06-11] MEDS: QUEtiapine FUMARATE 100 MG TABLET PO SCH ×3 (08:19→20:58)
[2022-06-11] MEDS: ENOXAPARIN SODIUM 40 MG/0.4 ML PF SYRINGE SQ SCH (08:25)
[2022-06-11] MEDS: PRENATAL NO.137/IRON/FOLIC ACID TABLET PO SCH (08:25)
[2022-06-11] MEDS: DESMOPRESSIN ACETATE 0.2 MG TABLET PO SCH (20:58)
[2022-06-11] MEDS: HALOPERIDOL LACTATE 5 MG/ML VIAL IM PRN (21:25)
[2022-06-12] MEDS: HALOPERIDOL LACTATE 5 MG/ML VIAL IM PRN (05:18)
[2022-06-12] MEDS: LEVOTHYROXINE SODIUM 25 MCG TABLET PO SCH (05:28)
[2022-06-12 07:24] VITALS: BP 110/82
[2022-06-12] MEDS: QUEtiapine FUMARATE 100 MG TABLET PO SCH ×3 (08:43→20:40)
[2022-06-12] MEDS: PRENATAL NO.137/IRON/FOLIC ACID TABLET PO SCH (08:43)
[2022-06-12] MEDS: MONTELUKAST SODIUM 10 MG TABLET PO SCH (08:44)
[2022-06-12] MEDS: DOCUSATE SODIUM 100 MG CAPSULE PO SCH ×2 (08:44→20:41)
[2022-06-12] MEDS: ENOXAPARIN SODIUM 40 MG/0.4 ML PF SYRINGE SQ SCH (08:44)
[2022-06-12] MEDS: ETHYL ALCOHOL 62% ANTISEPTIC NASAL SANITIZER 0.6 ML AMPUL NASAL SCH ×2 (08:44→20:44)
[2022-06-12 15:02] VITALS: BP 118/84
[2022-06-12 20:30] VITALS: BP 128/68
[2022-06-12] MEDS: DESMOPRESSIN ACETATE 0.2 MG TABLET PO SCH (20:40)
[2022-06-13] MEDS: HALOPERIDOL LACTATE 5 MG/ML VIAL IM PRN (04:28)
[2022-06-13] MEDS: LEVOTHYROXINE SODIUM 25 MCG TABLET PO SCH (06:28)
[2022-06-13 07:47] VITALS: BP 122/70
[2022-06-13] MEDS: QUEtiapine FUMARATE 100 MG TABLET PO SCH ×2 (08:13→16:21)
[2022-06-13] MEDS: ENOXAPARIN SODIUM 40 MG/0.4 ML PF SYRINGE SQ SCH (08:13)
[2022-06-13] MEDS: PRENATAL NO.137/IRON/FOLIC ACID TABLET PO SCH (08:13)
[2022-06-13] MEDS: ETHYL ALCOHOL 62% ANTISEPTIC NASAL SANITIZER 0.6 ML AMPUL NASAL SCH (08:13)
[2022-06-13] MEDS: DOCUSATE SODIUM 100 MG CAPSULE PO SCH (08:13)
[2022-06-13] MEDS: MONTELUKAST SODIUM 10 MG TABLET PO SCH (08:13)
[2022-06-13 10:43] LABS: ANION GAP 6 mmol/L (8-16); CALCIUM, TOTAL 9.3 mg/dL (8.8-10.5); CARBON DIOXIDE 28 mmol/L (22-29); CHLORIDE 101 mmol/L (98-107); GLUCOSE,RANDOM 87 mg/dL (70-110); POTASSIUM 4.3 mmol/L (3.5-5.1); SODIUM SERUM 135 mmol/L (136-145); UREA NITROGEN, BLOOD 17 mg/dL (7-18)
[2022-06-13 10:44] LABS: GLOMERULAR FILTR. RATE CALC > 60 mL/min (>60)
[2022-06-13 11:24] LABS: BASOPHILS % (AUTO) 0.2 % (0.0-2.0); EOSINOPHILS % (AUTO) 0.9 % (1.0-6.0); HEMATOCRIT 31.7 % (36-46); HEMOGLOBIN 10.2 g/dL (12.0-16.0); LYMPHOCYTES # (AUTO) 3.3 K/uL (1.0-4.8); LYMPHOCYTES % (AUTO) 31.1 % (22.0-44.0); MEAN CORPUSCULAR HEMOGLOBIN 28.1 pg (26.0-34.0); MEAN CORPUSCULAR HGB CONC 32.1 G/dL (31.0-37.0); MEAN CORPUSCULAR VOLUME 87 fL (80-100); MONOCYTES # (AUTO) 0.7 K/uL (0.1-1.0); MONOCYTES % (AUTO) 6.4 % (2.0-9.0); NEUTROPHILS # (AUTO) 6.5 K/uL (1.8-7.7); NEUTROPHILS % (AUTO) 61.4 % (40.0-70.0); PLATELET COUNT (AUTO) 399 K/uL (150-450); RED BLOOD CELL COUNT(AUTO) 3.64 MIL/uL (4.00-5.20); RED CELL DISTRIBUTION WIDTH 17.1 % (11.5-14.5)
[2022-06-13 14:55] VITALS: BP 116/72
[2022-06-14] MEDS: ETHYL ALCOHOL 62% ANTISEPTIC NASAL SANITIZER 0.6 ML AMPUL NASAL SCH ×3 (02:53→21:36)
[2022-06-14] MEDS: QUEtiapine FUMARATE 100 MG TABLET PO SCH ×4 (02:53→21:37)
[2022-06-14] MEDS: DESMOPRESSIN ACETATE 0.2 MG TABLET PO SCH ×2 (02:53→21:36)
[2022-06-14] MEDS: DOCUSATE SODIUM 100 MG CAPSULE PO SCH ×3 (02:53→21:36)
[2022-06-14 04:45] VITALS: BP 119/80
[2022-06-14] MEDS: LEVOTHYROXINE SODIUM 25 MCG TABLET PO SCH (05:41)
[2022-06-14 07:31] VITALS: BP 110/75
[2022-06-14] MEDS: PRENATAL NO.137/IRON/FOLIC ACID TABLET PO SCH (08:01)
[2022-06-14] MEDS: MONTELUKAST SODIUM 10 MG TABLET PO SCH (08:01)
[2022-06-14] MEDS: ENOXAPARIN SODIUM 40 MG/0.4 ML PF SYRINGE SQ SCH (08:02)
[2022-06-14 10:49] LABS: BASOPHILS % (AUTO) 0.3 % (0.0-2.0); EOSINOPHILS % (AUTO) 1.3 % (1.0-6.0); HEMATOCRIT 32.7 % (36-46); HEMOGLOBIN 10.3 g/dL (12.0-16.0); LYMPHOCYTES # (AUTO) 3.2 K/uL (1.0-4.8); LYMPHOCYTES % (AUTO) 34.8 % (22.0-44.0); MEAN CORPUSCULAR HGB CONC 31.5 G/dL (31.0-37.0); MEAN CORPUSCULAR VOLUME 89 fL (80-100); MONOCYTES # (AUTO) 0.6 K/uL (0.1-1.0); NEUTROPHILS # (AUTO) 5.3 K/uL (1.8-7.7); NEUTROPHILS % (AUTO) 57.6 % (40.0-70.0); PLATELET COUNT (AUTO) 397 K/uL (150-450); RED BLOOD CELL COUNT(AUTO) 3.69 MIL/uL (4.00-5.20); RED CELL DISTRIBUTION WIDTH 17.1 % (11.5-14.5)
[2022-06-14 12:23] LABS: COVID AG,FIA SOURCE NASAL SWAB
[2022-06-14 16:13] VITALS: BP 115/75
[2022-06-15 04:28] VITALS: BP 119/53
[2022-06-15] MEDS: HALOPERIDOL LACTATE 5 MG/ML VIAL IM PRN (05:07)
[2022-06-15] MEDS: LEVOTHYROXINE SODIUM 25 MCG TABLET PO SCH (05:12)
[2022-06-15] MEDS: PRENATAL NO.137/IRON/FOLIC ACID TABLET PO SCH (07:43)
[2022-06-15] MEDS: DOCUSATE SODIUM 100 MG CAPSULE PO SCH ×2 (07:43→20:35)
[2022-06-15] MEDS: QUEtiapine FUMARATE 100 MG TABLET PO SCH ×2 (07:43→20:35)
[2022-06-15] MEDS: ENOXAPARIN SODIUM 40 MG/0.4 ML PF SYRINGE SQ SCH (07:43)
[2022-06-15] MEDS: MONTELUKAST SODIUM 10 MG TABLET PO SCH (07:43)
[2022-06-15] MEDS: ETHYL ALCOHOL 62% ANTISEPTIC NASAL SANITIZER 0.6 ML AMPUL NASAL SCH ×2 (09:03→20:35)
[2022-06-15 10:47] LABS: BASOPHILS % (AUTO) 0.3 % (0.0-2.0); HEMATOCRIT 31.1 % (36-46); HEMOGLOBIN 9.9 g/dL (12.0-16.0); LYMPHOCYTES # (AUTO) 2.4 K/uL (1.0-4.8); LYMPHOCYTES % (AUTO) 29.3 % (22.0-44.0); MEAN CORPUSCULAR HEMOGLOBIN 27.9 pg (26.0-34.0); MEAN CORPUSCULAR HGB CONC 31.7 G/dL (31.0-37.0); MEAN CORPUSCULAR VOLUME 88 fL (80-100); MONOCYTES # (AUTO) 0.5 K/uL (0.1-1.0); NEUTROPHILS # (AUTO) 5.2 K/uL (1.8-7.7); NEUTROPHILS % (AUTO) 63.4 % (40.0-70.0); PLATELET COUNT (AUTO) 339 K/uL (150-450); RED BLOOD CELL COUNT(AUTO) 3.54 MIL/uL (4.00-5.20); RED CELL DISTRIBUTION WIDTH 16.5 % (11.5-14.5)
[2022-06-15 16:34] VITALS: BP 116/72
[2022-06-15] MEDS: DESMOPRESSIN ACETATE 0.2 MG TABLET PO SCH (20:36)
[2022-06-16] MEDS: LEVOTHYROXINE SODIUM 25 MCG TABLET PO SCH (05:33)
[2022-06-16 05:41] VITALS: BP 108/69
[2022-06-16] MEDS: QUEtiapine FUMARATE 100 MG TABLET PO SCH ×3 (08:09→20:24)
[2022-06-16] MEDS: DOCUSATE SODIUM 100 MG CAPSULE PO SCH ×2 (08:09→20:23)
[2022-06-16] MEDS: PRENATAL NO.137/IRON/FOLIC ACID TABLET PO SCH (08:09)
[2022-06-16] MEDS: MONTELUKAST SODIUM 10 MG TABLET PO SCH (08:09)
[2022-06-16] MEDS: ENOXAPARIN SODIUM 40 MG/0.4 ML PF SYRINGE SQ SCH (08:10)
[2022-06-16 08:25] VITALS: BP 101/51
[2022-06-16] MEDS: ETHYL ALCOHOL 62% ANTISEPTIC NASAL SANITIZER 0.6 ML AMPUL NASAL SCH ×2 (09:00→20:23)
[2022-06-16 16:00] VITALS: BP 121/52
[2022-06-16] MEDS: DESMOPRESSIN ACETATE 0.2 MG TABLET PO SCH (20:23)
[2022-06-16 22:48] VITALS: BP 117/73
[2022-06-17 05:10] VITALS: BP 118/78
[2022-06-17] MEDS: LEVOTHYROXINE SODIUM 25 MCG TABLET PO SCH (05:18)
[2022-06-17 07:26] VITALS: BP 104/76
[2022-06-17] MEDS: ETHYL ALCOHOL 62% ANTISEPTIC NASAL SANITIZER 0.6 ML AMPUL NASAL SCH ×2 (08:41→21:55)
[2022-06-17] MEDS: DOCUSATE SODIUM 100 MG CAPSULE PO SCH ×2 (08:43→21:56)
[2022-06-17] MEDS: QUEtiapine FUMARATE 100 MG TABLET PO SCH ×3 (08:44→21:55)
[2022-06-17] MEDS: PRENATAL NO.137/IRON/FOLIC ACID TABLET PO SCH (08:44)
[2022-06-17] MEDS: ENOXAPARIN SODIUM 40 MG/0.4 ML PF SYRINGE SQ SCH (08:45)
[2022-06-17] MEDS: MONTELUKAST SODIUM 10 MG TABLET PO SCH (08:45)
[2022-06-17 15:13] VITALS: BP 108/68
[2022-06-17 21:48] VITALS: BP 124/71
[2022-06-17] MEDS: DESMOPRESSIN ACETATE 0.2 MG TABLET PO SCH (21:55)
[2022-06-18 05:35] VITALS: BP 127/71
[2022-06-18] MEDS: LEVOTHYROXINE SODIUM 25 MCG TABLET PO SCH (05:48)
[2022-06-18 07:07] VITALS: BP 105/86
[2022-06-18] MEDS: ENOXAPARIN SODIUM 40 MG/0.4 ML PF SYRINGE SQ SCH (09:04)
[2022-06-18] MEDS: DOCUSATE SODIUM 100 MG CAPSULE PO SCH ×2 (09:04→20:33)
[2022-06-18] MEDS: MONTELUKAST SODIUM 10 MG TABLET PO SCH (09:04)
[2022-06-18] MEDS: PRENATAL NO.137/IRON/FOLIC ACID TABLET PO SCH (09:04)
[2022-06-18] MEDS: QUEtiapine FUMARATE 100 MG TABLET PO SCH ×3 (09:04→20:33)
[2022-06-18] MEDS: ETHYL ALCOHOL 62% ANTISEPTIC NASAL SANITIZER 0.6 ML AMPUL NASAL SCH ×2 (09:04→20:33)
[2022-06-18 15:19] VITALS: BP 111/81
[2022-06-18 20:30] VITALS: BP 116/64
[2022-06-18] MEDS: DESMOPRESSIN ACETATE 0.2 MG TABLET PO SCH (20:33)
[2022-06-18] MEDS: HALOPERIDOL LACTATE 5 MG/ML VIAL IM PRN (20:34)
[2022-06-19] MEDS: HALOPERIDOL LACTATE 5 MG/ML VIAL IM PRN ×2 (04:29→22:57)
[2022-06-19 04:34] VITALS: BP 116/77
[2022-06-19] MEDS: LEVOTHYROXINE SODIUM 25 MCG TABLET PO SCH (05:31)
[2022-06-19 07:24] VITALS: BP 110/78
[2022-06-19] MEDS: MONTELUKAST SODIUM 10 MG TABLET PO SCH (08:35)
[2022-06-19] MEDS: ENOXAPARIN SODIUM 40 MG/0.4 ML PF SYRINGE SQ SCH (08:35)
[2022-06-19] MEDS: ETHYL ALCOHOL 62% ANTISEPTIC NASAL SANITIZER 0.6 ML AMPUL NASAL SCH ×2 (08:35→20:45)
[2022-06-19] MEDS: PRENATAL NO.137/IRON/FOLIC ACID TABLET PO SCH (08:35)
[2022-06-19] MEDS: DOCUSATE SODIUM 100 MG CAPSULE PO SCH ×2 (08:35→20:45)
[2022-06-19] MEDS: QUEtiapine FUMARATE 100 MG TABLET PO SCH ×3 (08:35→20:45)
[2022-06-19] MEDS: DESMOPRESSIN ACETATE 0.2 MG TABLET PO SCH (20:46)
[2022-06-20] MEDS: HALOPERIDOL LACTATE 5 MG/ML VIAL IM PRN (06:41)
[2022-06-20] MEDS: PRENATAL NO.137/IRON/FOLIC ACID TABLET PO SCH (09:25)
[2022-06-20] MEDS: DOCUSATE SODIUM 100 MG CAPSULE PO SCH ×2 (09:25→21:00)
[2022-06-20] MEDS: ENOXAPARIN SODIUM 40 MG/0.4 ML PF SYRINGE SQ SCH (09:25)
[2022-06-20] MEDS: ETHYL ALCOHOL 62% ANTISEPTIC NASAL SANITIZER 0.6 ML AMPUL NASAL SCH ×2 (09:25→21:00)
[2022-06-20] MEDS: MONTELUKAST SODIUM 10 MG TABLET PO SCH (09:25)
[2022-06-20] MEDS: QUEtiapine FUMARATE 100 MG TABLET PO SCH ×2 (09:25→16:05)
[2022-06-20 15:50] VITALS: BP 118/76
[2022-06-21 01:00] VITALS: BP 129/84
[2022-06-21] MEDS: DESMOPRESSIN ACETATE 0.2 MG TABLET PO SCH ×2 (01:13→20:24)
[2022-06-21] MEDS: QUEtiapine FUMARATE 100 MG TABLET PO SCH ×4 (01:14→20:23)
[2022-06-21 06:05] VITALS: BP 120/73
[2022-06-21] MEDS: LEVOTHYROXINE SODIUM 25 MCG TABLET PO SCH (06:06)
[2022-06-21] MEDS: HALOPERIDOL LACTATE 5 MG/ML VIAL IM PRN (06:07)
[2022-06-21] MEDS: ETHYL ALCOHOL 62% ANTISEPTIC NASAL SANITIZER 0.6 ML AMPUL NASAL SCH ×2 (09:00→20:23)
[2022-06-21] MEDS: DOCUSATE SODIUM 100 MG CAPSULE PO SCH ×2 (09:33→20:23)
[2022-06-21] MEDS: ENOXAPARIN SODIUM 40 MG/0.4 ML PF SYRINGE SQ SCH (09:33)
[2022-06-21] MEDS: MONTELUKAST SODIUM 10 MG TABLET PO SCH (09:33)
[2022-06-21] MEDS: PRENATAL NO.137/IRON/FOLIC ACID TABLET PO SCH (09:36)
[2022-06-21 20:00] VITALS: BP 124/64
[2022-06-22] MEDS: LEVOTHYROXINE SODIUM 25 MCG TABLET PO SCH (05:24)
[2022-06-22 05:41] VITALS: BP 120/72
[2022-06-22 07:39] VITALS: BP 118/80
[2022-06-22] MEDS: DOCUSATE SODIUM 100 MG CAPSULE PO SCH ×2 (08:07→21:27)
[2022-06-22] MEDS: ENOXAPARIN SODIUM 40 MG/0.4 ML PF SYRINGE SQ SCH (08:07)
[2022-06-22] MEDS: MONTELUKAST SODIUM 10 MG TABLET PO SCH (08:07)
[2022-06-22] MEDS: QUEtiapine FUMARATE 100 MG TABLET PO SCH ×3 (08:47→21:27)
[2022-06-22] MEDS: PRENATAL NO.137/IRON/FOLIC ACID TABLET PO SCH (08:47)
[2022-06-22] MEDS: ETHYL ALCOHOL 62% ANTISEPTIC NASAL SANITIZER 0.6 ML AMPUL NASAL SCH ×2 (08:47→21:27)
[2022-06-22 15:14] VITALS: BP 115/74
[2022-06-22] MEDS: DESMOPRESSIN ACETATE 0.2 MG TABLET PO SCH (21:27)
[2022-06-23 00:15] VITALS: BP_SYST 119; BP_SYST 132; BP_DIAS 75; BP_DIAS 82
[2022-06-23] MEDS: LEVOTHYROXINE SODIUM 25 MCG TABLET PO SCH (06:09)
[2022-06-23 06:10] VITALS: BP 124/77
[2022-06-23] MEDS: HALOPERIDOL LACTATE 5 MG/ML VIAL IM PRN ×2 (06:28→21:09)
[2022-06-23 10:41] VITALS: BP 113/87
[2022-06-23] MEDS: QUEtiapine FUMARATE 100 MG TABLET PO SCH ×3 (10:46→21:17)
[2022-06-23] MEDS: DOCUSATE SODIUM 100 MG CAPSULE PO SCH ×2 (10:46→21:17)
[2022-06-23] MEDS: MONTELUKAST SODIUM 10 MG TABLET PO SCH (10:46)
[2022-06-23] MEDS: ETHYL ALCOHOL 62% ANTISEPTIC NASAL SANITIZER 0.6 ML AMPUL NASAL SCH ×2 (10:46→21:17)
[2022-06-23] MEDS: ENOXAPARIN SODIUM 40 MG/0.4 ML PF SYRINGE SQ SCH (10:46)
[2022-06-23] MEDS: PRENATAL NO.137/IRON/FOLIC ACID TABLET PO SCH (10:46)
[2022-06-23 15:18] VITALS: BP 115/76
[2022-06-23] MEDS: DESMOPRESSIN ACETATE 0.2 MG TABLET PO SCH (21:17)
[2022-06-24] MEDS: HALOPERIDOL LACTATE 5 MG/ML VIAL IM PRN (05:25)
[2022-06-24 05:37] VITALS: BP 119/80
[2022-06-24 07:23] VITALS: BP 118/82
[2022-06-24] MEDS: DOCUSATE SODIUM 100 MG CAPSULE PO SCH ×2 (10:39→21:00)
[2022-06-24] MEDS: MONTELUKAST SODIUM 10 MG TABLET PO SCH (10:39)
[2022-06-24] MEDS: ENOXAPARIN SODIUM 40 MG/0.4 ML PF SYRINGE SQ SCH (10:40)
[2022-06-24] MEDS: QUEtiapine FUMARATE 100 MG TABLET PO SCH ×2 (10:40→15:43)
[2022-06-24] MEDS: PRENATAL NO.137/IRON/FOLIC ACID TABLET PO SCH (10:40)
[2022-06-24] MEDS: ETHYL ALCOHOL 62% ANTISEPTIC NASAL SANITIZER 0.6 ML AMPUL NASAL SCH ×2 (10:43→21:00)
[2022-06-24 15:00] VITALS: BP 122/78
[2022-06-25] MEDS: QUEtiapine FUMARATE 100 MG TABLET PO SCH ×4 (00:17→22:25)
[2022-06-25] MEDS: DESMOPRESSIN ACETATE 0.2 MG TABLET PO SCH ×2 (00:18→22:25)
[2022-06-25] MEDS: LEVOTHYROXINE SODIUM 25 MCG TABLET PO SCH (06:10)
[2022-06-25 06:58] VITALS: BP 119/77
[2022-06-25] MEDS: DOCUSATE SODIUM 100 MG CAPSULE PO SCH ×2 (08:51→22:25)
[2022-06-25] MEDS: PRENATAL NO.137/IRON/FOLIC ACID TABLET PO SCH (08:51)
[2022-06-25] MEDS: MONTELUKAST SODIUM 10 MG TABLET PO SCH (08:51)
[2022-06-25] MEDS: ENOXAPARIN SODIUM 40 MG/0.4 ML PF SYRINGE SQ SCH (08:51)
[2022-06-25] MEDS: ETHYL ALCOHOL 62% ANTISEPTIC NASAL SANITIZER 0.6 ML AMPUL NASAL SCH ×2 (08:53→22:25)
[2022-06-25 15:17] VITALS: BP 123/84
[2022-06-25] MEDS: HALOPERIDOL LACTATE 5 MG/ML VIAL IM PRN (22:28)
[2022-06-25 22:30] VITALS: BP 123/91
[2022-06-26 04:10] VITALS: BP 116/76
[2022-06-26] MEDS: LEVOTHYROXINE SODIUM 25 MCG TABLET PO SCH (06:26)
[2022-06-26 07:43] VITALS: BP 126/91
[2022-06-26] MEDS: DOCUSATE SODIUM 100 MG CAPSULE PO SCH ×2 (08:19→21:04)
[2022-06-26] MEDS: QUEtiapine FUMARATE 100 MG TABLET PO SCH ×3 (08:19→21:04)
[2022-06-26] MEDS: MONTELUKAST SODIUM 10 MG TABLET PO SCH (08:19)
[2022-06-26] MEDS: ENOXAPARIN SODIUM 40 MG/0.4 ML PF SYRINGE SQ SCH (08:20)
[2022-06-26] MEDS: PRENATAL NO.137/IRON/FOLIC ACID TABLET PO SCH (08:21)
[2022-06-26] MEDS: ETHYL ALCOHOL 62% ANTISEPTIC NASAL SANITIZER 0.6 ML AMPUL NASAL SCH ×2 (08:24→21:03)
[2022-06-26 15:29] VITALS: BP 130/80
[2022-06-26] MEDS: DESMOPRESSIN ACETATE 0.2 MG TABLET PO SCH (21:03)
[2022-06-26] MEDS: HALOPERIDOL LACTATE 5 MG/ML VIAL IM PRN (23:07)
[2022-06-27] MEDS: LEVOTHYROXINE SODIUM 25 MCG TABLET PO SCH (06:47)
[2022-06-27 06:50] VITALS: BP 122/78
[2022-06-27 07:42] VITALS: BP 118/76
[2022-06-27] MEDS: QUEtiapine FUMARATE 100 MG TABLET PO SCH ×3 (08:43→22:33)
[2022-06-27] MEDS: MONTELUKAST SODIUM 10 MG TABLET PO SCH (08:43)
[2022-06-27] MEDS: ETHYL ALCOHOL 62% ANTISEPTIC NASAL SANITIZER 0.6 ML AMPUL NASAL SCH ×2 (08:43→21:00)
[2022-06-27] MEDS: DOCUSATE SODIUM 100 MG CAPSULE PO SCH ×2 (08:43→22:33)
[2022-06-27 15:21] VITALS: BP 125/75
[2022-06-27] MEDS: DESMOPRESSIN ACETATE 0.2 MG TABLET PO SCH (22:33)
[2022-06-28 02:24] VITALS: BP 131/92
[2022-06-28] MEDS: LEVOTHYROXINE SODIUM 25 MCG TABLET PO SCH (06:47)
[2022-06-28 07:04] LABS: BASOPHILS % (AUTO) 0.2 % (0.0-2.0); EOSINOPHILS % (AUTO) 3.3 % (1.0-6.0); HEMATOCRIT 35.6 % (36-46); HEMOGLOBIN 11.7 g/dL (12.0-16.0); LYMPHOCYTES # (AUTO) 2.5 K/uL (1.0-4.8); LYMPHOCYTES % (AUTO) 41.4 % (22.0-44.0); MEAN CORPUSCULAR HEMOGLOBIN 28.2 pg (26.0-34.0); MEAN CORPUSCULAR HGB CONC 32.8 G/dL (31.0-37.0); MEAN CORPUSCULAR VOLUME 86 fL (80-100); MONOCYTES # (AUTO) 0.4 K/uL (0.1-1.0); MONOCYTES % (AUTO) 7.2 % (2.0-9.0); NEUTROPHILS # (AUTO) 2.9 K/uL (1.8-7.7); NEUTROPHILS % (AUTO) 47.9 % (40.0-70.0); PLATELET COUNT (AUTO) 234 K/uL (150-450); RED BLOOD CELL COUNT(AUTO) 4.14 MIL/uL (4.00-5.20)
[2022-06-28 07:38] VITALS: BP 118/78
[2022-06-28 07:59] LABS: ANION GAP 9 mmol/L (8-16); CARBON DIOXIDE 26 mmol/L (22-29); CHLORIDE 103 mmol/L (98-107); CREATININE 0.62 mg/dL (0.60-1.30); GLOMERULAR FILTR. RATE CALC > 60 mL/min (>60); GLUCOSE,RANDOM 108 mg/dL (70-110); POTASSIUM 4.5 mmol/L (3.5-5.1); SODIUM SERUM 138 mmol/L (136-145); UREA NITROGEN, BLOOD 17 mg/dL (7-18)
[2022-06-28] MEDS: ETHYL ALCOHOL 62% ANTISEPTIC NASAL SANITIZER 0.6 ML AMPUL NASAL SCH ×2 (08:15→20:40)
[2022-06-28] MEDS: QUEtiapine FUMARATE 100 MG TABLET PO SCH ×3 (08:16→20:43)
[2022-06-28] MEDS: MONTELUKAST SODIUM 10 MG TABLET PO SCH (08:16)
[2022-06-28] MEDS: DOCUSATE SODIUM 100 MG CAPSULE PO SCH ×2 (08:16→20:42)
[2022-06-28 16:23] VITALS: BP 130/74
[2022-06-28 19:21] VITALS: BP 119/75
[2022-06-28] MEDS: DESMOPRESSIN ACETATE 0.2 MG TABLET PO SCH (20:43)
[2022-06-29] MEDS: LEVOTHYROXINE SODIUM 25 MCG TABLET PO SCH (06:42)
[2022-06-29 07:38] VITALS: BP 123/83
[2022-06-29] MEDS: MONTELUKAST SODIUM 10 MG TABLET PO SCH (08:08)
[2022-06-29] MEDS: DOCUSATE SODIUM 100 MG CAPSULE PO SCH ×2 (08:08→21:14)
[2022-06-29] MEDS: QUEtiapine FUMARATE 100 MG TABLET PO SCH ×3 (08:09→21:14)
[2022-06-29] MEDS: ETHYL ALCOHOL 62% ANTISEPTIC NASAL SANITIZER 0.6 ML AMPUL NASAL SCH ×2 (08:14→21:14)
[2022-06-29 15:43] VITALS: BP 126/83
[2022-06-29] MEDS: DESMOPRESSIN ACETATE 0.2 MG TABLET PO SCH (21:14)
[2022-06-29] MEDS: HALOPERIDOL LACTATE 5 MG/ML VIAL IM PRN (22:50)
[2022-06-30 04:45] VITALS: BP 127/81
[2022-06-30] MEDS: LEVOTHYROXINE SODIUM 25 MCG TABLET PO SCH (05:42)
[2022-06-30 07:32] VITALS: BP 121/76
[2022-06-30] MEDS: QUEtiapine FUMARATE 100 MG TABLET PO SCH ×3 (08:09→19:44)
[2022-06-30] MEDS: MONTELUKAST SODIUM 10 MG TABLET PO SCH (08:09)
[2022-06-30] MEDS: DOCUSATE SODIUM 100 MG CAPSULE PO SCH ×2 (08:09→19:43)
[2022-06-30] MEDS: ETHYL ALCOHOL 62% ANTISEPTIC NASAL SANITIZER 0.6 ML AMPUL NASAL SCH ×2 (08:10→19:42)
[2022-06-30 16:35] VITALS: BP 153/86
[2022-06-30] MEDS: DESMOPRESSIN ACETATE 0.2 MG TABLET PO SCH (19:43)
[2022-06-30] MEDS: HALOPERIDOL LACTATE 5 MG/ML VIAL IM PRN (23:04)
[2022-06-30 23:37] VITALS: BP 136/65
[2022-07-01 04:57] VITALS: BP 111/70
[2022-07-01] MEDS: LEVOTHYROXINE SODIUM 25 MCG TABLET PO SCH (05:21)
[2022-07-01 08:36] VITALS: BP 128/70
[2022-07-01] MEDS: DOCUSATE SODIUM 100 MG CAPSULE PO SCH (08:57)
[2022-07-01] MEDS: MONTELUKAST SODIUM 10 MG TABLET PO SCH (08:58)
[2022-07-01] MEDS: ETHYL ALCOHOL 62% ANTISEPTIC NASAL SANITIZER 0.6 ML AMPUL NASAL SCH (08:58)
[2022-07-01] MEDS: QUEtiapine FUMARATE 100 MG TABLET PO SCH (08:58)
== END 2022-07-01 10:23 | DRG 720 ==
LOC: EMS 09:16 → 6S 13:53 → 5S 15:27 → 6S 05-05 19:01 → 6N 05-07 09:38 → 6S 06-21 16:01 → 6N 06-21 19:17 → 6S 06-29 08:09
PROVIDERS: ADMIT Internal Medicine; ATTEND Hospitalist
PROC: 05HB33Z Insertion of Infusion Device into Right Basilic Vein, Percutaneous Approach (ICD-10-PCS; 2022-04-30)
PROC: B54MZZA Ultrasonography of Right Upper Extremity Veins, Guidance (ICD-10-PCS; 2022-04-30)
PROC: XW033E5 Introduction of Remdesivir Anti-infective into Peripheral Vein, Percutaneous Approach, New Technology Group 5 (ICD-10-PCS; principal; 2022-05-27)
DX: A41.51 Sepsis due to Escherichia coli [E. coli] (principal); J69.0 Pneumonitis due to inhalation of food and vomit; G92.8 Other toxic encephalopathy; U07.1 COVID-19; E44.0 Moderate protein-calorie malnutrition; D69.6 Thrombocytopenia, unspecified; E87.1 Hypo-osmolality and hyponatremia; I48.92 Unspecified atrial flutter; R62.7 Adult failure to thrive; E86.0 Dehydration; J45.909 Unspecified asthma, uncomplicated; F20.9 Schizophrenia, unspecified; R32 Unspecified urinary incontinence; N39.0 Urinary tract infection, site not specified; E03.9 Hypothyroidism, unspecified; T43.595A Adverse effect of other antipsychotics and neuroleptics, initial encounter; R94.6 Abnormal results of thyroid function studies; B96.20 Unspecified Escherichia coli [E. coli] as the cause of diseases classified elsewhere; E87.5 Hyperkalemia; G40.909 Epilepsy, unspecified, not intractable, without status epilepticus; N32.81 Overactive bladder; Z60.8 Other problems related to social environment; K21.9 Gastro-esophageal reflux disease without esophagitis; Z79.899 Other long term (current) drug therapy; Z91.199 Patient's noncompliance with other medical treatment and regimen due to unspecified reason; Y92.89 Other specified places as the place of occurrence of the external cause; Z68.23 Body mass index [BMI] 23.0-23.9, adult; R62.50 Unspecified lack of expected normal physiological development in childhood
CPT/HCPCS: 36245; 36569; 70450; 71045; 76700; 76801; 76937; 80048; 80053; 80164; 80178; 81001; 82040; 82728; 83735; 84100; 84145; 84439; 84443; 84702; 84703; 85025; 85379; 86140; 87040; 87077; 87081; 87086; 87186; 87205; 87804; 92526; 92610; 93005; 93308; 99285; C9113; G0378; G0480; J0282; J0696; J1160; J1200; J1630; J1644; J1650; J2060; J2270; J2405; J2543; J3370; J3475; J3490; J7030; J7050; J7060; J7518; Q9967; 36415-L1; 36415-TC; U0003